=== PATIENT | male | born 1950 | race African-American/Black ===

== ENCOUNTER 2016-06-21 21:15 | Emergency (ER) | payer OTHER ==
[~2016-06-21] VITALS: Ht 175.3 cm; Wt 90.7 kg
[~2016-06-21 21:15] MED LIST: BENICAR 5 MG5 M1 PO; BENICAR20 MG PO; CIPRO250 M1 PO; COLACE100 MG PO; FLOMAX0.4 MG PO; FLOXIN OTI0.3 %/5 M1 OT; HYDROCODON-ACE1 EAC8 PO; HYDROCODONE-HOMA5 ML PO; LANTUS100 UNIT/M SUBQ; LIPITOR 20 MG T20 M1 PO; MIRALAX17 GM PO; MOBIC15 MG PO; NEURONTIN 300300 M1 PO; NEURONTIN600 MG PO; NOVOLOG100 UNIT/1; NOVOLOG100 UNIT/1 SQ; PEPCID20 MG PO; PREDNISONE 20 M20 MG PO; REFRESH TEARS15 ML OP; TESSALON PERLE100 M1 PO; TYLENOL325 MG PO; VALSARTAN320 MG PO; ZOFRAN ODT4 MG PO
[2016-06-21] MEDS ORDERED: BACITRACIN3.5 GM OP (21:37)
== END 2016-06-21 22:09 | disposition home or self-care (01) ==
LOC: ER 21:15
DX: S99.922A Unspecified injury of left foot, initial encounter (principal); E11.9 Type 2 diabetes mellitus without complications; I10 Essential (primary) hypertension; E78.00 Pure hypercholesterolemia, unspecified; Z90.89 Acquired absence of other organs; L93.0 Discoid lupus erythematosus; W45.8XXA Other foreign body or object entering through skin, initial encounter; Y93.89 Activity, other specified; Y92.89 Other specified places as the place of occurrence of the external cause; Y99.9 Unspecified external cause status

== ENCOUNTER → 2016-12-27 | Outpatient (CLI) | payer OTHER ==
[~2016-12-27] VITALS: Ht 175.3 cm; Wt 99.8 kg
[~2016-12-27] MED LIST changes: +ASPIR 8181 MG PO; +BACITRACIN3.5 GM; +BACITRACIN3.5 GM OP; +DIOVAN320 MG PO; +GABAPENTIN600 M1 PO; +KLOR-CON 1010 MEQ PO; +LASIX 20 MG TAB20 MG PO; +LASIX 40 MG TAB40 M2 PO; -NOVOLOG100 UNIT/1; +NOVOLOG100 UNIT/1 SUBQ; +VERAPAMIL E.R240 M1 PO; +ZANTAC 150MG T150 MG PO
--- NOTE | ~2016-12-27 | P ---
[facility] [place] [address] [address] PROCEDURE REPORT Name: GIBSON HUNG Room #: REG [facility] Hernandez#: [id number] Admission: 12/27/16 Attend Phys: Americo Feng Discharge: Date of : 52 Report #: [id number] THIS REPORT FOR: //name// CC: Americo Farris DATE OF SERVICE: 12/27/2016 PROCEDURE PERFORMED: Upper endoscopy with biopsies. HISTORY OF PRESENT ILLNESS: The patient is a 66-year-old male with complaints of hematochezia, lightheadedness, was seen in the Emergency Room on 12/07/2016. He reported bright red blood per rectum, denied any abdominal pain but did have some diarrhea. The patient takes meloxicam as well as aspirin. He apparently was given antibiotics and released. He denies any further bleeding. No family history of colon cancer. Plan is for EGD and colonoscopy today. DESCRIPTION OF PROCEDURE: The risks and benefits of the procedure were explained to the patient, those risks including but not limited to bleeding, perforation, the risk of sedation. He understood these risks and gave informed consent. Sedation was given using propofol per anesthesia. Next, using a standard ZEturfn upper endoscope, the scope was placed in the patient's mouth and advanced under direct vision through the esophagus, stomach and into the second portion of the duodenum. The upper and mid esophagus was normal in appearance. In the distal esophagus, possible short segment of Camejo's was noted. Biopsies were obtained. No evidence of esophagitis. Overall, the gastric mucosa showed a gmhe-vf-ixcmcepx gastritis. There was no bleeding, no ulcerations or erosions. Biopsies were obtained to rule out H. pylori. The pylorus was normal and patent. The duodenal bulb, first and second portion were all normal. The scope was then withdrawn and the procedure terminated. The patient tolerated the procedure well. IMPRESSION: 1. Gastritis, no evidence of bleeding. 2. 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 3. Otherwise normal upper endoscopy. RECOMMENDATIONS: 1. Await biopsy results. 2. We will proceed with colonoscopy next today. [facility] [address] [place] [address] PROCEDURE REPORT Name: GIBSON HUNG Room #: REG [facility] Hernandez#: [id number] Admission: 12/27/16 Attend Phys: Americo Feng Discharge: Date of : 51 Report #: [id number] Thank you for allowing me to participate in his care. By: 1003 1023 Americo Sarabia MD /nt
--- NOTE | ~2016-12-27 | S ---
[facility] [place] [address] SURGICAL PATH RPT PROCEDURE Name: GIBSON HUNG Room #: REG TREY Thacker.#: [id number] Admission: 12/27/16 Date of : 52 Discharge: Report #: [id number] Path Case #: [id number] PATHOLOGY REPORT COLLECTION DATE: 12/27/2016 RECEIVED DATE: 12/27/2016 SUBMITTING PHYS: Dr. Americo Sarabia OTHER PHYS: Dr. Sylvia Farris SPECIMEN(S) RECEIVED: A.Gastric B.Distal esophagus * * * * * * * * * * * * FINAL DIAGNOSIS: A. "Gastric", biopsy: - Gastric mucosa with rosh-ge-nzjhtbeo chronic active gastritis, mild activity. - Negative H. pylori immunohistochemical stain (block A1); control reacted appropriately (see comment). B. "Distal esophagus", biopsy: - Esophageal squamous mucosa and gastric cardia-type mucosa with reactive changes and chronic inflammation; no intestinal metaplasia or dysplasia seen. COMMENT: Within specimen A, the pattern of inflammation is histologically suggestive of an H. pylori infection; however, organisms are not identified on the immunohistochemical stain. Correlation with clinical history and additional laboratory data to potentially identify H. pylori organisms is recommended. (KRISTIW:gretta; 12/28/2016) PATHOLOGIST: Ramonita Chester M.D. REPORT ELECTRONICALLY SIGNED BY: Ramonita Chester M.D. DATE/TIME: 12/28/2016 21:54 * * * * * * * * * * * * GROSS PATHOLOGY: A. Received in formalin labeled "Gibson Hung, BX to Rx gastritis," and additionally labeled on the requisition as "r/o," are 2 segments of carias soft tissue measuring 1.5 x 1.3 x 0.3 cm in aggregate dimensions and ranging from 0.3 to 0.4 cm in maximum dimension. The specimen is submitted entirely in cassette A1. B. Received in formalin labeled "Gibson Hung, distal esophagus r/o Camejo's," are 2 segments of carias soft tissue measuring 0.8 x 0.[address] [place] [address] SURGICAL PATH RPT PROCEDURE Name: GIBSON HUNG [facility] [id number] Admission: 12/27/16 Date of : 52 Discharge: Report #: [id number] Path Case #: [id number] x 0.3 cm in aggregate dimensions and ranging from 0.3 to 0.4 cm in maximum dimension. The specimen is submitted entirely in cassette B1. (TSD; 12/27/2016) CLINICAL HISTORY: Pre-OP DX: Rectal bleeding Post-OP DX: Gastritis INITIAL CPT CODE(S): A; 60939, 15921 B; 60318 Professional services performed by [facility] at [facility] [address], [place] [address] Technical services performed by [facility] at [address] [place] [address]., [address], [place] [address]. [facility] [address] [place] [address] PHONE: [phone] DIRECTOR: Diony Mccord M.D. * * * END OF REPORT * * *
--- NOTE | ~2016-12-27 | P ---
[facility] [place] [address] PROCEDURE REPORT Name: GIBSON HUNG Room #: REG [facility] Hernandez#: [id number] Admission: 12/27/16 Attend Phys: Americo Feng Discharge: Date of : 52 Report #: [id number] THIS REPORT FOR: //name// CC: Americo Farris DATE OF SERVICE: 12/27/2016 PROCEDURE PERFORMED: Colonoscopy. HISTORY OF PRESENT ILLNESS: The patient is a 66-year-old male who began having bloody diarrhea on 12/07/2016, was evaluated in the Emergency Room and discharged with antibiotics. He denies any further bleeding. He denied any abdominal pain. There is no family history of colon cancer. No imaging was performed at that time. DESCRIPTION OF PROCEDURE: The risks and benefits of the procedure were explained to the patient, those risks including but not limited to bleeding, perforation, the risk of sedation. He understood these risks and gave informed consent. Sedation was given using propofol per anesthesia. Next, a digital rectal exam was initially performed, which was normal. Next, using a standard Primadeskn colonoscope, the scope was placed in the patient's anus and advanced under direct vision to the cecum. The overall prep was good in most areas. There were some small areas of solid stool, washings and aspirations were performed. Stool was in the cecum, so I was not able to evaluate most of the cecum. The ileocecal valve was normal. The ascending, transverse, descending and sigmoid colon were all normal in areas that were visualized. There was no evidence of inflammation. No diverticulosis was noted, no colitis. The rectal mucosa was normal. On retroflexion, small nonbleeding internal hemorrhoids were noted, otherwise normal colonoscopy. The scope was then withdrawn and the procedure terminated. The patient tolerated the procedure well. IMPRESSION: 1. Small internal hemorrhoids. 2. Otherwise, normal colonoscopy. RECOMMENDATIONS: No stigmata of bleeding on EGD or colonoscopy today. The patient has a mild gastritis, however, there are no signs of bleeding. We will await biopsy results. Suspect the patient may have had infections colitis as he was treated with antibiotics and his symptoms have now resolved. Would observe at this point. [address] [address] PROCEDURE REPORT Name: GIBSON HUNG Room #: REG TREY Ng#: [id number] Admission: 12/27/16 Attend Phys: Americo Feng Discharge: Date of : 52 Report #: [id number] Thank you for allowing me to participate in his care. By: 1006 1031 Americo Sarabia MD /agustín
== END | disposition home or self-care (01) ==
LOC: GI 07:03
DX: R19.7 Diarrhea, unspecified (principal); K64.8 Other hemorrhoids; K29.70 Gastritis, unspecified, without bleeding; Z90.49 Acquired absence of other specified parts of digestive tract; E11.9 Type 2 diabetes mellitus without complications; I10 Essential (primary) hypertension; E78.00 Pure hypercholesterolemia, unspecified; Z98.890 Other specified postprocedural states
CPT/HCPCS: 62110; 62900

== ENCOUNTER 2017-07-31 00:17 | Emergency (ER) | payer OTHER ==
[~2017-07-31] VITALS: Ht 175.3 cm; Wt 106.1 kg
--- NOTE | ~2017-07-31 | EKG ---
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 : 1950 Requested By: Dawood Antonio Order Number: [id number] MD: Charan Rubin Measurements Intervals [place] Rate: 78 P: 55 NE: 182 QRS: -30 QRSD: 90 T: 53 QT: 398 QTc: 454 Interpretive Statements Sinus rhythm Left axis deviation Nonspecific T wave abnormality Compared to ECG 05/02/2005 18:46:30 Nonspecific change in the T wave abnormality Electronically Signed On 07-31-2017 7:39:07 CDT by Charan Rubin [email or web address] <ELECTRONICALLY SIGNED> By: Charan Rubin MD, [facility] 07/31/17 0739 0029 0029 Charan Rubin MD, [facility] /EPI
[2017-07-31] MEDS ORDERED: JANUVIA100 MG PO (00:32)
[2017-07-31] MEDS ORDERED: STOOL SOFTENER100 MG PO (00:32)
[2017-07-31] MEDS ORDERED: TRAMADOL 50 MG50 MG PO (00:33)
[2017-07-31] MEDS ORDERED: FLEXERIL PO (00:33)
[2017-07-31] MEDS ORDERED: CARVEDILOL25 MG PO (00:34)
[2017-07-31] MEDS ORDERED: VOLTAREN GEL 1100 G1 TOP (00:35)
[2017-07-31] MEDS ORDERED: ALDACTONE25 MG PO (00:36)
[2017-07-31 01:31] LABS: ABSOLUTE NEUTROPHILS 4.4 thou/uL (1.4-8.2); EOSINOPHILS 3.2 % (0.0-3.0); HEMATOCRIT 34.6 % (42.0-52.0); HEMOGLOBIN 11.5 gm/dL (14.0-18.0); LYMPHOCYTES 22.9 % (24.0-44.0); MCH 26.3 pg (26.0-34.0); MCHC 33.2 g/dL (28.0-37.0); MCV 79.2 fL (80.0-100.0); MONOCYTES 8.5 % (1.0-8.0); PLATELET COUNT 240 thou/uL (150-400); POLYS 64.4 % (36.0-66.0); RBC 4.37 mil/uL (4.50-6.00); RDW 17.1 % (10.5-14.5); WBC 6.9 thou/uL (4.0-11.0)
[2017-07-31 01:40] LABS: ANION GAP 12 mmol/L (7-16); BUN 21 mg/dL (7-18); CHLORIDE 103 mmol/L (98-107); CO2 23 mmol/L (21-32); CREATININE 1.9 mg/dL (0.7-1.3); GLUCOSE 312 mg/dL (74-106); POTASSIUM 4.4 mmol/L (3.5-5.1); SODIUM 138 mmol/L (136-145)
[2017-07-31 01:48] LABS: TROPONIN-I < 0.04 ng/mL (<0.06)
== END 2017-07-31 02:58 | disposition home or self-care (01) ==
LOC: ER 00:17
PROVIDERS: Emergency Medicine
DX: R60.0 Localized edema (principal); I10 Essential (primary) hypertension; E11.9 Type 2 diabetes mellitus without complications; M54.9 Dorsalgia, unspecified; G89.29 Other chronic pain; Z90.89 Acquired absence of other organs

== ENCOUNTER 2018-09-23 12:50 | Emergency (ER) | payer OTHER ==
[~2018-09-23] VITALS: Ht 172.7 cm; Wt 108.1 kg
[~2018-09-23 12:50] MED LIST changes: +ALDACTONE25 MG PO; +ALLOPURINOL 10100 M1 PO; +BENICAR40 MG PO; +CARVEDILOL25 MG PO; +DEMADEX20 MG PO; +FLEXERIL PO; +IRBESARTAN300 MG PO; +JANUVIA100 MG PO; +NORVASC10 MG PO; +NORVASC5 MG PO; +POTASSIUM20 PO; +STOOL SOFTENER100 MG PO; +TRAMADOL 50 MG50 MG PO; +VOLTAREN GEL 1100 G1 TOP
[2018-09-23 14:43] LABS: ABSOLUTE NEUTROPHILS 5.3 thou/uL (1.4-8.2); BASOPHILS 1.2 % (0.0-2.0); EOSINOPHILS 3.5 % (0.0-3.0); HEMATOCRIT 34.9 % (42.0-52.0); HEMOGLOBIN 11.4 gm/dL (14.0-18.0); LYMPHOCYTES 17.1 % (24.0-44.0); MCH 27.3 pg (26.0-34.0); MCHC 32.7 g/dL (28.0-37.0); MCV 83.3 fL (80.0-100.0); MONOCYTES 8.8 % (1.0-8.0); PLATELET COUNT 208 thou/uL (150-400); POLYS 69.4 % (36.0-66.0); RBC 4.18 mil/uL (4.50-6.00); RDW 15.1 % (10.5-14.5); WBC 7.7 thou/uL (4.0-11.0)
[2018-09-23 14:51] LABS: CALCIUM 8.9 mg/dL (8.5-10.1); POTASSIUM 5.1 mmol/L (3.5-5.1)
[2018-09-23 14:57] LABS: ALBUMIN 3.8 g/dL (3.4-5.0); DIRECT BILIRUBIN 0.1 mg/dL (<0.1-0.3); TOTAL BILIRUBIN 0.6 mg/dL (<0.1-1.0); TOTAL PROTEIN 8.4 g/dL (6.4-8.2)
[2018-09-23 16:40] VITALS: BP 141/80
== END 2018-09-23 16:40 | disposition home or self-care (01) ==
LOC: ER 12:50
PROVIDERS: Emergency Medicine
DX: R60.0 Localized edema (principal); E11.9 Type 2 diabetes mellitus without complications; I10 Essential (primary) hypertension; M32.9 Systemic lupus erythematosus, unspecified; Z79.4 Long term (current) use of insulin; Z90.49 Acquired absence of other specified parts of digestive tract

== ENCOUNTER → 2019-04-23 | Outpatient (CLI) | payer OTHER ==
[~2019-04-23] VITALS: Ht 175.3 cm; Wt 95.3 kg
[~2019-04-23] MED LIST changes: +AMITRIPTYLINE H10 M1 PO; +ARICEPT10 M1 PO; +LIPITOR10 MG PO; +LYRICA 50 MG50 MG PO; +TORSEMIDE20 MG PO
--- NOTE | ~2019-04-23 | HPC ---
[facility] [address] [address] PAIN MANAGEMENT CONSULTATION Name: GIBSON HUNG Room #: REG TREY OlmedoEdieDarion.#: [id number] Admission: 04/23/19 Attend Phys: Didi Whitman MD Discharge: Date of : 52 Report #: [id number] THIS REPORT FOR: cc: Sylvia Farris MD,Sylvia Whitman,Didi Mcdonald MD ~ CC: Sylvia Whitman DATE OF SERVICE: 04/23/2019 CHIEF COMPLAINT: Pain in the center low back with pain down in the right hip and into both legs and thighs down to the ankles. HISTORY: The patient is a 69-year-old gentleman who has been referred to the pain clinic because of pain and discomfort, which he has been experiencing. He states that he had back surgery in 02/2018. After the surgery, he underwent physical therapy. He underwent therapy for a couple of months. He states that he was using a walker. Has had pain similar to that which he experienced prior to the surgery. He has been having pain radiating down into his buttocks down into his legs. About a week ago, he noticed increased pain and pressure radiating down to the posterior portion of his left leg and hip. He has used hydrocodone when the pain was extremely bad. He did fall. States that he called fire department and was taken to [facility]. States that he underwent rehab for over a month. Notes that his pain is worse with prolonged standing. Pain improves when he is lying down. He describes his pain overall as constant, burning, shooting, aching, cramping, crushing, pulling, gnawing, throbbing, sharp, and stabbing. He rates it as 6/10 today. Can rise to the level of 10. Oftentimes, it averages 7-8. ALLERGIES: ATIVAN. CURRENT MEDICATIONS: Carvedilol 25 mg, Lipitor 10 mg 2 tablets, amlodipine 2.5 mg, Levemir 100 units subQ as directed, allopurinol 100 mg daily, Colace 100 mg, diclofenac 50 mg b.i.d., ____, Flomax 0.4 mg, iron 325 mg, diclofenac gel to affected area 4 times daily, losartan 100 mg, doxazosin 4 mg, bethanechol 25 mg b.i.d., loperamide 2 mg, methocarbamol 750 mg, glucose ____ p.r.n., NovoLog 100 units pen injector, [place] 5/325, gabapentin 600 mg 1 tablet t.i.d., and torsemide 10 mg. PAST MEDICAL HISTORY: Hypertension, type 2 diabetes, hypercholesterolemia, peripheral vascular disease, and benign prostatic hypertrophy. PAST SURGICAL HISTORY: Back surgery in 2000, skin graft from lupus in 2011, hernia repair in 1973, appendectomy in 4, testicular surgery, lumbar laminectomy L4-L5 and L5-S1 with removal of the epidural lipomatosis in 02/2018, [address] [address] PAIN MANAGEMENT CONSULTATION Name: GIBSON HUNG Darion Room #: KEMI Ng#: [id number] Admission: 04/23/19 Attend Phys: Didi Whitman MD Discharge: Date of : 52 Report #: [id number] and mass removal in right leg in 2015. SOCIAL HISTORY: He is retired and has stopped working in 2015. REVIEW OF SYSTEMS: Generally good health, fatigue, weakness, eye disease, blurred vision, glaucoma/cataracts, hearing loss, frequent urination, numbness and tingling, tremors, memory loss/confusion, diabetes, heat intolerance. PAIN CLINIC ASSESSMENT AND PQRS: 1. History of osteoarthritis. The patient has some arthritic changes in his back. He is not being treated for rheumatoid arthritis. 2. Height 5 feet 9 inches, weight 210 pounds, BMI is 31.0. 3. Vital signs: Blood pressure 153/73, pulse 67, respiratory rate 16, room air saturation 96%. 4. Pain intensity 6-7/10. 5. Fall risk. The patient fell. Needed some assistance in getting up. 6. Blood thinner. The patient is not on a blood thinning medication. 7. Hypertension. The patient is being treated for hypertension. 8. Opioids greater than 6 weeks. The patient is not on an opioid medication on a regular basis. 9. Risk assessment tool, low for opioid use. 10. Functional assessment tool 43/70. 11. Recreational drug use. The patient denies use of recreational drugs. Did use cocaine 5-6 years ago. 12. Tobacco: The patient has never smoked. 13. Alcohol: The patient drinks alcoholic beverages on occasion. PHYSICAL EXAMINATION: GENERAL: The patient is a well-developed, well-nourished black male, appears his stated age. He is alert and oriented x 3. His affect is appropriate. Speech is fluent. HEENT: Normocephalic, atraumatic. Extraocular eye muscles intact. Sclerae nonicteric. Mucous membranes are moist. NECK: Without adenopathy or JVD. MUSCULOSKELETAL: Upper extremity muscle strength judged to be 5-/5 for the major muscle groups in the upper extremity. The patient without significant scoliosis, kyphosis, or lordosis. He has a well-healed scar in the lower portion of his back. Some decreased ability to bend forward. Left and right lateral bending, left and right lateral rotation were not very problematic. The patient does have some pain and discomfort, which is radiating down the posterior portion of his legs in the L5-S1 dermatomal distribution on the left and the right. Also, has some numbness and tingling down into his feet. Has some pain in his great toe. IMPRESSION: 1. Lumbar radiculopathy with L5-S1 dermatomal distribution with pain radiating [facility] [address] [place] [address] PAIN MANAGEMENT CONSULTATION Name: GIBSON HUNG Room #: REG [facility] Kirstie.#: [id number] Admission: 04/23/19 Attend Phys: Didi Whitman MD Discharge: Date of : 52 Report #: [id number] down the left as well as the right posterior thigh, calf, and involving with numbness and tingling down in the feet. 2. Hypertension. 3. Diabetes. 4. Kidney disease. 5. Joint disease/arthritis. 6. Gout involving the great toe. 7. Benign prostatic hypertrophy. RECOMMENDATIONS: We discussed treatment options with the patient. The patient is having pain and discomfort radiating down into his low back area, left and right in the L4-L5 dermatomal distribution. We discussed the possibility of an epidural steroid injection. The patient states that he has had some epidural steroid injections in the past at a pain clinic ____ [place]. We would recommend that the patient retrieve these records, so we can evaluate what procedure was done in the past. We will have the patient try amitriptyline 10 mg at bedtime. This can be helpful with sleep as well as with pain. The patient will also try Lyrica. A script for Lyrica 50 mg 1 p.o. t.i.d. has been provided. After the patient returned to the pain clinic, we will consider whether or not an injection will be beneficial. We would like to thank you for letting us participate in his care. We hope he continues to improve. By: 0005 0130 Didi Whitman MD /agustín
[2019-04-23 09:28] VITALS: BP 153/73
--- NOTE | 2019-04-23 09:43 | NUR ---
Pain Clinic Assessment: 1. History of Osteoarthritis: NOT SURE History of Rheumatoid Arthritis: 2. Height: 5 ft. 9 in. 175.3 cm. Weight: 210.0 lb. oz. 95.256 kg. Patient's BMI: 31.0 3. Vital Signs: BP: 153/73 Pulse: 67 Resp: 16 Temp: 02 Sat: 96 ECG Mon: 4. Pain Intensity: 6-8 5. Fall Risk: Dizziness: N Needs help standing or walking: Y Fallen in the last 3 months: Y Fall risk comments: 6. Patient on Blood Thinner: None 7. History of Hypertension: Y 8. Opioid Therapy greater than 6 weeks: N Opiate Contract Signed: 9. Risk Assessment Tool Provided: 2-LOW RISK 10. Functional Assessment Tool: 43 11. Recreational Drug Use: Past greater than 3 mos Drug Type: COCAINE Tobacco Use: Never Smoker Tobacco Type: Amount or Packs/day: How Many Years: Alcohol Use: Yes Frequency: Special Occasions Quant:
== END ==
LOC: PAIN 04-02 10:47
DX: M54.16 Radiculopathy, lumbar region (principal); M25.551 Pain in right hip; I10 Essential (primary) hypertension; E11.9 Type 2 diabetes mellitus without complications; N28.9 Disorder of kidney and ureter, unspecified; M19.90 Unspecified osteoarthritis, unspecified site; M10.9 Gout, unspecified; N40.0 Benign prostatic hyperplasia without lower urinary tract symptoms

== ENCOUNTER 2019-08-24 16:29 | Inpatient (IN) | payer OTHER ==
[~2019-08-24] VITALS: Ht 175.3 cm; Wt 95.4 kg
[2019-08-24 16:30] VITALS: BP 180/70
[2019-08-24 16:56] LABS: URINE BILIRUBIN NEGATIVE (Negative); URINE BLOOD 3+ (Negative); URINE CLARITY CLEAR; URINE COLOR YELLOW; URINE GLUCOSE-RANDOM* 1+ (Negative); URINE KETONES 1+ (Negative); URINE LEUKOCYTES-REFLEX NEGATIVE (Negative); URINE NITRITE-REFLEX NEGATIVE (Negative); URINE PROTEIN (DIPSTICK) 3+ (Negative); URINE SPECIFIC GRAVITY 1.025 (1.005-1.035); URINE UROBILINOGEN 0.2 E.U./dl (0.2-1.0)
[2019-08-24 17:02] LABS: HYALINE CASTS 0-3 Few /LPF (None Seen); SQUAMOUS 0-3 Few /LPF (0-3)
[2019-08-24 17:03] LABS: AMORPHOUS URATES Few /LPF (None Seen); BACTERIA-REFLEX None Seen /HPF (None Seen); TRANSITIONAL EPITHEL CELL 0-3 Few /LPF (None Seen); URINE RBC 3-10 Few /HPF (0-2); URINE WBC-REFLEX 0-5 Rare /HPF (0-5)
[2019-08-24 17:13] LABS: BE(vivo) -4.6 mmol/L (-2 to +3); HCO3 17.5 mmol/L (22.0-26.0); PCO2 24.1 mmHg (35.0-45.0); PO2 63.7 mmHg (80.0-100.0); sO2 94.2 % (92.0-98.0)
[2019-08-24] MEDS ORDERED: LIPITOR 20 MG T20 M1 PO (17:13)
[2019-08-24] MEDS ORDERED: FLOMAX0.4 MG PO (17:14)
[2019-08-24] MEDS ORDERED: LEVEMIR100 UNIT/1 SUBQ (17:16)
[2019-08-24] MEDS ORDERED: ARICEPT10 M1 PO (17:17)
[2019-08-24 17:19] LABS: ABSOLUTE NEUTROPHILS 17.9 thou/uL (1.4-8.2); BASOPHILS 0.1 % (0.0-2.0); HEMATOCRIT 30.8 % (42.0-52.0); HEMOGLOBIN 10.1 gm/dL (14.0-18.0); LYMPHOCYTES 2.4 % (24.0-44.0); MCH 24.5 pg (26.0-34.0); MCHC 32.6 g/dL (28.0-37.0); MCV 75.2 fL (80.0-100.0); MONOCYTES 5.5 % (1.0-8.0); PLATELET COUNT 246 thou/uL (150-400); RDW 16.8 % (10.5-14.5); WBC 19.5 thou/uL (4.0-11.0)
[2019-08-24 17:29] LABS: ANION GAP 14 mmol/L (7-16); BUN 34 mg/dL (7-18); CHLORIDE 101 mmol/L (98-107); CO2 23 mmol/L (21-32); CREATININE 3.3 mg/dL (0.7-1.3); GLUCOSE 275 mg/dL (74-106); SODIUM 138 mmol/L (136-145)
--- NOTE | 2019-08-24 17:31 | NUR ---
This RN speaks with daughter, Kristi, on phone. Kristi reports that patient was found at home with two empty bottles of wine next to him. Patient's sister noticed patient had vomited and there was some blood in patient's vomit.
[2019-08-24 17:34] LABS: ALBUMIN 2.9 g/dL (3.4-5.0); SGOT 25 U/L (15-37); SGPT 21 U/L (30-65); TOTAL PROTEIN 7.9 g/dL (6.4-8.2); TROPONIN-I <0.06 ng/mL (<0.06)
--- NOTE | 2019-08-24 19:40 | NUR ---
Pharmacy contacted for vancomycin. Tech reports med already sent. This RN checks department. Vanco not received by other nurses. Pharmacy called back.
--- NOTE | 2019-08-24 19:51 | NUR ---
Pharmacy reports will send vancomycin
[2019-08-24 20:02] LABS: INR 1.2; PROTIME 12.3 Seconds (9.3-11.4)
[2019-08-24 20:07] LABS: FIBRINOGEN 767.1 mg/dL (210-360)
--- NOTE | 2019-08-24 20:59 | NUR ---
Rachael contacted for antipyretic medication
[2019-08-24 21:36] VITALS: BP 166/79
[2019-08-24 22:05] VITALS: BP 175/87
[2019-08-25] VITALS (139 sets, daily range): BP systolic 115–193; BP diastolic 54–104
[2019-08-25 00:19] LABS: BE(vivo) -3.8 mmol/L (-2 to +3); HCO3 19.6 mmol/L (22.0-26.0); PCO2 30.1 mmHg (35.0-45.0); pH 7.432 (7.360-7.450); sO2 97.9 % (92.0-98.0)
--- NOTE | 2019-08-25 02:08 | NUR ---
ASSUMED CARE OF PATIENT AT 2215 08/24/19 FROM ED, PATIENT WAS ON 3L O2 INITIALLY AND WAS NOT ABLE TO KEEP O2 ABOVE 88%, PATIENT WAS QUICKLY INCREASED TO 10 L WITH MINIMAL IMPROVEMENT. PULMONARY CONSULT ADDED AND CALLED INTERNATIONAL COORDINATOR. ID CONSULT CALLED AND SPOKE WITH DR. Jamin PRADO. PATIENT RESPIRATIONS GREATER THAN 30. PATIENT'S TEMPERATURE 38.4. TYLENOL GIVEN IN ED. ICE PACKS PLACED IN AXILLARY AND GROIN AREA, LIGHT SHEET COVERING PATIENT. PATIENT SHIVERING. PATIENT TO CONTINUE WITH POC.
[2019-08-25 06:18] LABS: ABSOLUTE NEUTROPHILS 15.9 thou/uL (1.4-8.2); BASOPHILS 0.2 % (0.0-2.0); HEMOGLOBIN 8.8 gm/dL (14.0-18.0); LYMPHOCYTES 2.5 % (24.0-44.0); MCH 24.4 pg (26.0-34.0); MCHC 32.7 g/dL (28.0-37.0); MCV 74.6 fL (80.0-100.0); PLATELET COUNT 208 thou/uL (150-400); POLYS 93.3 % (36.0-66.0); RBC 3.62 mil/uL (4.50-6.00); RDW 16.7 % (10.5-14.5)
[2019-08-25 06:35] LABS: ALBUMIN 2.3 g/dL (3.4-5.0); CALCIUM 7.4 mg/dL (8.5-10.1); CREATININE 3.2 mg/dL (0.7-1.3); MAGNESIUM 1.7 mg/dL (1.8-2.4); POTASSIUM 3.8 mmol/L (3.5-5.1); TOTAL BILIRUBIN 0.9 mg/dL (0.2-1.0); TOTAL PROTEIN 5.7 g/dL (6.4-8.2)
--- NOTE | 2019-08-25 06:42 | NUR ---
ASSUMED CARE OF PATIENT FROM ED AT 2215. ASSESSMENT COMPLETED. FEBRILE MINIMAL RELIEF FROM PO ACET. ICE APPLIED TO THE AXILLARY AND GROIN. PATIENT PLACED ON BIPAP AND REMAINED FOR THE ENTIRETY OF THE NIGHT.
--- NOTE | 2019-08-25 09:03 | EKG ---
[facility] [place] [address] [place] [address] ELECTROCARDIOGRAM REPORT Name: GIBSON HUNG Room #: 236-P ADM IN M.R.#: [id number] Admission: 08/24/19 Attend Phys: Vinicio Velasco MD Discharge: Date of : 52 Report #: [id number] THIS REPORT FOR: cc: Sylvia Farris MD, Karla L. 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: EVONNE : 1950 Requested By: Shanell Malloy Order Number: [id number] MD: Charan Rubin Measurements Intervals [place] Rate: 108 P: 67 [place]: 204 QRS: -2 QRSD: 96 T: 106 QT: 328 QTc: 440 Interpretive Statements Sinus tachycardia Poor R wave progression Nonspecific ST and T wave abnormality Compared to ECG 11/07/2017 19:35:00 No significant change was found Electronically Signed On 08-25-2019 9:01:03 CDT by Charan Rubin [email or web address] <ELECTRONICALLY SIGNED> By: Charan Rubin MD, [facility] 08/25/19 0901 1635 1635 Charan Rubin MD, [facility] /EPI
--- NOTE | 2019-08-25 10:29 | NUR ---
chart review, unable to visit with pt at this time on bipap.
[2019-08-25 13:36] LABS: BE(vivo) -5.7 mmol/L (-2 to +3); HCO3 18.3 mmol/L (22.0-26.0); PCO2 30.9 mmHg (35.0-45.0); PO2 137.3 mmHg (80.0-100.0); pH 7.391 (7.360-7.450); sO2 98.8 % (92.0-98.0)
--- NOTE | 2019-08-25 18:12 | NUR ---
1750- PATIENT WAS ABLE TO TALK WITH BOTH OF HIS DAUGHTERS ON THE PHONE. NURSE TALKED WITH CHANDLER WHO EXPRESSED SHE IS OK WITH PATIENT BEING INTUBATED. NURSE OFFERED DR. CANO TO CALL HER AGAIN PRIOR TO INTUBATION FOR FURTHER ANSWERS TO THE RESEARCH ON INTUBATED PATIENTS WITH POTENTIAL COVID, CHANDLER EXPRESSED THERE IS NO NEED AND THAT SHE AGREES WITH INTUBATION.
--- NOTE | 2019-08-25 18:30 | NUR ---
1829- PATIENT INTUBATED BY DR. CANO. 2 RT'S AND 1 RN IN ROOM. PATIENT ATTEMPTING TO GRAB ET TUBE, RESTRAINTS PLACED.
--- NOTE | 2019-08-25 18:45 | NUR ---
OG TUBE PLACED, XRAY TO CONFIRM. CENTRAL LINE PLACED, CONSENT OBTAINED. WAITING XRAY FOR PLACEMENT. NURSE TO CONTINUE TO MONITOR PATIENT STATUS.
--- NOTE | 2019-08-25 18:46 | NUR ---
VAT CONSULTED FOR A CL FOR THIS PT WHO IS PUI, RESP ISSUES. PER HOSPITAL P&P A [id number] PLACED WITH THE TIP IN THE [facility]. LINE PULLED BACK 3CM AND PT WOLF WELL.
[2019-08-25 20:37] LABS: BE(vivo) -6.6 mmol/L (-2 to +3); HCO3 17.4 mmol/L (22.0-26.0); PCO2 29.6 mmHg (35.0-45.0); PO2 178.4 mmHg (80.0-100.0); pH 7.388 (7.360-7.450); sO2 99.2 % (92.0-98.0)
[2019-08-26] VITALS (77 sets, daily range): BP systolic 76–203; BP diastolic 42–85
--- NOTE | 2019-08-26 06:00 | NUR ---
REMAINS INTUBATED AND SEDATED WITH PROPOFOL FOR VENT MANAGEMENT. VSS HAD A LARGE BROWN LIQUID STOOL EARLIER. COMPLETE BED BATH AND LINEN CHANGE DONE. WILL CONT TO MONITOR CLOSELY.
[2019-08-26 06:01] LABS: BE(vivo) -6.3 mmol/L (-2 to +3); PCO2 32.2 mmHg (35.0-45.0); PO2 90.1 mmHg (80.0-100.0); pH 7.365 (7.360-7.450); sO2 96.7 % (92.0-98.0)
--- NOTE | 2019-08-26 07:30 | NUR ---
SEDATION VACATION FROM [id number], PROPOFOL WAS ON HOLD. HE FOLLOWED COMMANDS, NODDED APPROPRIATELY. HR 87 RR 16 CALM SBP 130S INTUBATED LAST NIGHT, NO CPAP TRIAL TODAY.
[2019-08-26 07:42] LABS: ALBUMIN 2.2 g/dL (3.4-5.0); CALCIUM 7.5 mg/dL (8.5-10.1); CREATININE 3.8 mg/dL (0.7-1.3); POTASSIUM 4.2 mmol/L (3.5-5.1); TOTAL BILIRUBIN 0.7 mg/dL (0.2-1.0)
--- NOTE | 2019-08-26 14:59 | 2DMMODE ---
[facility] [place] [address] 2 D/M-MODE ECHOCARDIOGRAM Name: GIBSON HUNG Room #: 236-P ADM IN M.R.#: [id number] Admission: 08/24/19 Attend Phys: Vinicio Velasco MD Discharge: Date of : 52 Report #: [id number] THIS REPORT FOR: cc: Sylvia Farris MD, Karla L. MD Lundgren, Craig H. MD [facility] ~ APPROVED REPORT Study performed: 08/26/2019 13:06:02 EXAM: Comprehensive 2D, Doppler, and color-flow Echocardiogram Patient Location: ICU Room #: 236 Status: routine BSA: 2.07 HR: 55 bpm Rhythm: NSR Other Information Study Quality: Good Indications Respiratory failure. Hx: HTN, HLP, DM, ETOH abuse. 2D Dimensions IVSd: 12.00 (7-11mm) LVOT Diam: 22.33 (18-24mm) LVDd: 51.00 mm PWd: 12.44 (7-11mm) Ascending Ao: 28.70 (22-36mm) LVDs: 36.43 (25-40mm) Aortic Root: 35.91 mm Volumes Left Atrial Volume (Systole) Single Plane 4CH: 56.07 mL Single Plane 2CH: 67.55 mL LA ESV Index: 33.00 mL/m2 Aortic Valve AoV Peak Rashawn.: 1.18 m/s AO Peak Gr.: 5.57 mmHg LVOT Max P.48 mmHg LVOT Max V: 0.79 m/s WILFREDO Vmax: 2.61 cm2 Mitral Valve [facility] [address] [place] [address] 2 D/M-MODE ECHOCARDIOGRAM Name: GIBSON HUNG Room #: 236-P [facility] IN [facility]#: [id number] Admission: 08/24/19 Attend Phys: Vinicio Velasco MD Discharge: Date of : 52 Report #: [id number] E/A Ratio: 1.5 MV Decel. Time: 266.10 ms MV E Max Rashawn.: 0.78 m/s MV A Rashawn.: 0.51 m/s MV PHT: 77.17 ms IVRT: 59.98 ms Pulmonary Valve PV Peak Rashawn.: 0.84 m/s PV Peak Gr.: 2.85 mmHg Pulmonary Vein P Vein S: 0.58 m/s P Vein A: 0.27 m/s P Vein D: 0.49 m/s P Vein A Dur.: 147.6 msec P Vein S/D Ratio: 1.18 Tricuspid Valve TR Peak Rashawn.: 1.88 m/s RAP Estimate: 10.00 mmHg TR Peak Gr.: 14.13 mmHg PA Pressure: 24.00 mmHg Left Ventricle The left ventricle is normal size. There is normal LV segmental wall motion. Mild concentric left ventricular hypertrophy. Left ventricular systolic function is normal. LVEF is 55%. Moderate diastolic dysfunction Right Ventricle The right ventricle is normal size. The right ventricular systolic function is normal. Atria The left atrium size is normal. The right atrium size is normal. Aortic Valve The aortic valve is normal in structure. No aortic regurgitation is present. There is no aortic valvular stenosis. Mitral Valve The mitral valve is normal in structure. Trace to mild mitral regurgitation. Tricuspid Valve The tricuspid valve is normal in structure. Trace tricuspid regurgitation. Estimated PAP is 25mmHg. [facility] [place] [address] 2 D/M-MODE ECHOCARDIOGRAM Name: GIBSON HUNG Darion Room #: 236-P ADM IN M.R.#: [id number] Admission: 08/24/19 Attend Phys: Vinicio Velasco MD Discharge: Date of : 52 Report #: [id number] Pulmonic Valve The pulmonary valve is normal in structure. Trace pulmonic regurgitation. Great Vessels The aortic root is normal in size. The ascending aorta is normal in size. IVC is dilated and collapses <50% with inspiration. Pericardium Small pericardial effusion. <Conclusion> Left ventricular systolic function is normal. There is normal LV segmental wall motion. Mild concentric left ventricular hypertrophy. LVEF is 55%. Moderate diastolic dysfunction The aortic valve is normal in structure. No aortic regurgitation or stenosis The mitral valve is normal in structure. Trace to mild mitral regurgitation. Trace tricuspid regurgitation. Estimated pulmonary artery pressure of 25mmHg. Small pericardial effusion. <ELECTRONICALLY SIGNED> By: Charan Rubin MD, [facility] 08/26/19 1458 [id number] Charan Rubin MD, [facility] /INF
[2019-08-26 17:03] LABS: ABSOLUTE NEUTROPHILS 12.8 thou/uL (1.4-8.2); BASOPHILS 1.2 % (0.0-2.0); EOSINOPHILS 0.9 % (0.0-3.0); HEMATOCRIT 25.1 % (42.0-52.0); HEMOGLOBIN 8.1 gm/dL (14.0-18.0); MCH 24.2 pg (26.0-34.0); MCHC 32.4 g/dL (28.0-37.0); MCV 74.5 fL (80.0-100.0); MONOCYTES 3.2 % (1.0-8.0); PLATELET COUNT 178 thou/uL (150-400); POLYS 89.7 % (36.0-66.0); RBC 3.37 mil/uL (4.50-6.00); RDW 17.3 % (10.5-14.5); WBC 14.2 thou/uL (4.0-11.0)
--- NOTE | 2019-08-26 17:06 | NUR ---
1700- NURSE UPDATED PTS DAUGHTER, CHANDLER HUNG, ON LABS, VITALS, AND OVERALL CURRENT STATUS AND PLAN OF CARE. HER QUESTIONS WERE ANSWERED.
[2019-08-26 17:07] LABS: HIV ANTIBODY Non Reactive (Non Reactive)
[2019-08-26 18:20] LABS: ANISOCYTOSIS 1+; PLATELET ESTIMATE NORMAL
[2019-08-26 18:21] LABS: HYPOCHROMASIA SLIGHT; TARGET CELLS FEW; TEARDROPS FEW; TOXIC GRANULATION SLIGHT
--- NOTE | 2019-08-26 19:30 | NUR ---
PATIENT PROGRESSING TOWARDS PLAN OF CARE EVIDENCED BY DECREASING OXYGEN DEMANDS, AFEBRILE, DECREASED TACHYCARDIA AND HYPERTENSION WITH SEDATION AND IV MEDICATIONS.
[2019-08-27] VITALS (19 sets, daily range): BP systolic 126–151; BP diastolic 62–72
[2019-08-27 05:10] LABS: BE(vivo) -3.9 mmol/L (-2 to +3); HCO3 21.4 mmol/L (22.0-26.0); PCO2 40.2 mmHg (35.0-45.0); PO2 81.2 mmHg (80.0-100.0); pH 7.345 (7.360-7.450); sO2 95.4 % (92.0-98.0)
[2019-08-27 05:17] LABS: HEMATOCRIT 24.8 % (42.0-52.0); HEMOGLOBIN 8.3 gm/dL (14.0-18.0); MCHC 33.2 g/dL (28.0-37.0); MCV 75.3 fL (80.0-100.0); RBC 3.3 mil/uL (4.50-6.00); RDW 17.8 % (10.5-14.5); WBC 13.5 thou/uL (4.0-11.0)
--- NOTE | 2019-08-27 05:30 | NUR ---
ASSUMED CARE AT 1900. SEDATION VACATION DURING FIRST ASSESSMENT, PROPOFOL AND VERSED WERE OFF FOR ABOUT 15 MINUTES BEFORE PT STARTED TO RESPOND TO COMMANDS, AND HE WAS SLUGGISH WITH THESE RESPONSES. TITRATED VERSED DOWN AND LEFT PROPOFOL AT PREVIOUS DOSE 40 MCG. Q2 TURNS AND ORAL CARE, Q2 RELEASE FROM RESTRAINTS. PERKINS DRAINING YELLOW URINE, SENT SAMPLE TO LAB. OG AND ET TUBES IN PLACE. NO TEMPS OVERNIGHT. ONE MEDIUM LIQUID STOOL, DARK BILE GREEN IN COLOR. WAS SB IN MID 50'S PRIOR TO DECREASING VERSED, HR NOW 60-65 AND REGULAR. NO OTHER CONCERNS, WILL CONTINUE TO MONITOR.
[2019-08-27 06:16] LABS: ALBUMIN 1.8 g/dL (3.4-5.0); CALCIUM 7.4 mg/dL (8.5-10.1); CREATININE 3.4 mg/dL (0.7-1.3); PHOSPHORUS 4.6 mg/dL (2.5-4.9); POTASSIUM 3.8 mmol/L (3.5-5.1)
--- NOTE | 2019-08-27 09:18 | HC ---
[facility] [place] [address] CONSULTATION Name: GIBSON HUNG Room #: 236-P ADM IN M.R.#: [id number] Admission: 08/24/19 Attend Phys: Vinicio Velasco MD Discharge: Date of : 52 Report #: [id number] THIS REPORT FOR: cc: Sylvia Farris MD,Sylvia Dos Santos,Lewis Merritt MD ~ CC: Sylvia Velasco DATE OF SERVICE: 08/26/2019 REASON FOR CONSULTATION: Chronic kidney disease. REASON FOR PRESENTATION: Found down with mental status changes. HISTORY OF PRESENT ILLNESS: This is obtained from the medical chart. The patient is intubated and not able to provide me with the history. The patient has a history of chronic alcohol abuse. He was found in his bed passed out with 2 empty bottles of wine. Paramedics were called. The patient was brought to the Emergency Room and was very lethargic. The patient's condition deteriorated. He was found to have bibasilar infiltrate consistent with pneumonia and right-sided pleural effusion. He had required intubation to protect his airways as he was not able to protect his airways by himself. The patient's creatinine on presentation was 3.3. I did look back to the patient's history and it does look like that the patient carries a diagnosis of chronic kidney disease ever since 2018 with his baseline creatinine in the 2.5 range. He continues to make appropriate amount of urine. He has leukocytosis. Vancomycin level was elevated after he was initiated on appropriate pneumonia coverage. As stated above, the patient is currently intubated and not able to provide us with any details. PAST MEDICAL HISTORY: 1. Alcohol abuse. 2. Chronic kidney disease. 3. Back surgery. 4. Right leg surgery. 5. Appendectomy. MEDICATIONS: 1. Allopurinol. 2. Carvedilol. 3. Torsemide. 4. Amlodipine. 5. Insulin. ADDITIONAL MEDICAL HISTORY: Diabetes mellitus. [address] [address] CONSULTATION Name: GIBSON HUNG Darion Room #: 236-P [facility] IN ..#: [id number] Admission: 08/24/19 Attend Phys: Vinicio Velasco MD Discharge: Date of : 52 Report #: [id number] ALLERGIES: None. SOCIAL HISTORY: Unobtainable given the patient's current mental status. REVIEW OF SYSTEMS: Unobtainable given the patient's current mental status. FAMILY HISTORY: Unobtainable given the patient's current mental status. PHYSICAL EXAMINATION: GENERAL: Intubated. VITAL SIGNS: Blood pressure is 129/64. Temperature is 38.8. HEAD AND NECK: ET tube in place. CHEST: Bilateral rhonchi. CARDIOVASCULAR: No rub. ABDOMEN: Distended. EXTREMITIES: Lower extremities, +1 edema. LABORATORY DATA: Laboratory values from today revealed a white blood cell count of 17,000, hemoglobin of 8.8, sodium of 142, potassium of 4.2, BUN of 44, creatinine of 3.8. Vancomycin level is elevated at 22. First COVID-19 PCR is negative. ASSESSMENT, IMPRESSION AND PLAN: 1. Acute kidney injury on top of chronic kidney disease. 2. Respiratory failure. 3. Fever. 4. PUI for COVID-19. 5. Aspiration pneumonitis. 6. Alcoholism. 7. Dementia. 8. The patient does have history of chronic kidney disease based on his previous creatinine value. 9. His vancomycin level is elevated and I will stop that. 10. Initiate acute kidney injury workup. 11. Currently being ruled out for second COVID-19 sample. 12. Continue with the hemodynamic support. 13. Pulmonary is managing his vent issues. 14. Avoid nephrotoxins. 15. Continue to follow daily electrolytes and kidney function. 16. Avoid aggressive blood pressure reduction. [address] [address] CONSULTATION Name: GIBSON HUNG Room #: 236-P ADM IN M.R.#: [id number] Admission: 08/24/19 Attend Phys: Vinicio Velasco MD Discharge: Date of : 52 Report #: [id number] 17. He seems to be making appropriate amount of urine and we will continue to follow and support during his hospital stay. <ELECTRONICALLY SIGNED> By: Lewis Dos Santos MD 08/27/19 0918 0900 0946 Lewis Dos Santos MD /agustín
--- NOTE | 2019-08-27 09:34 | NUR ---
Starting npo status day 3. If unable to extubate, recommend start Vital high protein at 30ml/hr and reach goal of 55ml/hr. Defer any fluid needs to renal
--- NOTE | 2019-08-27 11:04 | NUR ---
RN ASSUMED CARE AT 0700. PATIENT'S SISTER CALLING, RN ASKING HER TO CALL BACK DUE TO IT BEING SHIFT CHANGE. AT 1030, PATIENT'S DAUGHTER CALLED, RN EDUCATED AND UPDATING HER ABOUT POC. AT 0930, DR SHORE ROUNDING. ORDERS TO BEGIN TUBE FEEDS GIVEN.
--- NOTE | 2019-08-27 16:14 | NUR ---
SW reviewed chart and spoke with attending physician. Pt remains intubated. Will need therapy evals when pt is able to participate. YVONNE is following to assist as needed with discharge planning.
--- NOTE | 2019-08-27 22:25 | NUR ---
SPOKE WITH DAUGHTER (VERONICA HUNG) AND GAVE UPDATE ON PATIENTS PLAN.
[2019-08-28] VITALS (42 sets, daily range): BP systolic 85–157; BP diastolic 55–75
--- NOTE | 2019-08-28 04:54 | NUR ---
RECIEVED CARE OF PATIENT AT 1900, PATIENT ON LIGHT SEDATION, REMAINS ON PROPOFOL BUT VERSED WEANED OFF DURING BEGINNING OF SHIFT. PATIENT SQUEEZES EYEBROWS WHEN SEDATION IS PAUSED, DOES NOT FOLLOW COMMANDS. ON VENTLATOR AT 40% FIO2, O2 SAT REMAINED ABOVE 90%. TOLERATING TUBE FEEDING AT 30ML/HR, RESIDUAL CHECK AT 0400 WAS 100ML. PERKINS PATENT WITH GREATER THAN 30CC/HR OUTPUT. NO SIGNIFICANT EVENTS THROUGHOUT THE NIGHT, CHEST X-RAY AND LABWORK COMPLETED. NO SIGN OF ACUTE DISTRESS NOTED AT THIS TIME. WILL CONTINUE TO MONITOR.
[2019-08-28 06:24] LABS: ALBUMIN 1.7 g/dL (3.4-5.0); CALCIUM 7.8 mg/dL (8.5-10.1); PHOSPHORUS 4.1 mg/dL (2.5-4.9); POTASSIUM 3.4 mmol/L (3.5-5.1)
--- NOTE | 2019-08-28 10:30 | NUR ---
SUCTIONED PATIENT. PATIENT COUGHED UP LARGE BLOODY SPUTUM. ORAL CARE PROVIDED. REPOSITIONED PATIENT TO RIGHT SIDE. PATIENT HAD MEDIUM LIQUID GREEN STOOL. PLACED GLIDE SHEET FOR EASE OF REPOSITIONING.
--- NOTE | 2019-08-28 15:27 | NUR ---
SW reviewed chart and spoke with attending physician. Pt remains intubated in ICU. Vent weaning trials continue. SW spoke with pt's dtr, Kristi, via phone to provide update. Pt's dtr states that pt has been to [facility] and [facility]. Pt's dtr states if pt needs post acute care, family would request referral to [facility]. SW explained that therapy evals will be ordered when pt is extubated and able to participate. Pt's dtr verbalized understanding. SW is following to assist as needed with discharge planning.
[2019-08-29] VITALS (47 sets, daily range): BP systolic 144–167; BP diastolic 46–72
[2019-08-29 05:57] LABS: HEMATOCRIT 23.2 % (42.0-52.0); HEMOGLOBIN 7.8 gm/dL (14.0-18.0); MCH 25.4 pg (26.0-34.0); MCHC 33.7 g/dL (28.0-37.0); MCV 75.3 fL (80.0-100.0); RBC 3.08 mil/uL (4.50-6.00); RDW 17.9 % (10.5-14.5); WBC 9.8 thou/uL (4.0-11.0)
[2019-08-29 06:23] LABS: ALBUMIN 1.6 g/dL (3.4-5.0); CALCIUM 7.9 mg/dL (8.5-10.1); CREATININE 2.8 mg/dL (0.7-1.3); PHOSPHORUS 3.9 mg/dL (2.5-4.9); POTASSIUM 3.5 mmol/L (3.5-5.1)
--- NOTE | 2019-08-29 07:26 | NUR ---
PT IS ON PROPOFOL GTT AT 20MCG. SEDATION VACATION AT 9768-1040. PT DOESNT FOLLOW COMMANDS, BUT AWAKENS AND OPENS EYES TO VOICE, POSITIVE COUGH AND GAG AND FACIAL GRIMACE TO PAIN. PT HAD A STABLE UNEVENTFUL NOC. PT RESTED WELL ALL NOC. PROPOFOL GTT TURNED DOWN TO 15MCG. TOTAL U/O OF 850ML. PT'S DTR CHANDLER CALLED AT 2125 STATING THAT SHE DROPPED OFF PT'S PHONE AT THE ER ENTRANCE. RN GOT PT'S PHONE AND PLACED IT ON BEDSIDE TABLE. PT IS STABLE, WILL CONTINUE TO CLOSELY MONITOR.
--- NOTE | 2019-08-29 14:13 | NUR ---
SW reviewed chart and spoke with attending physician. Pt remains intubated and sedated in ICU. Will need therapy evals ordered when extubated and able to participate. No weekend discharge planned. YVONNE is following to assist as needed with discharge planning.
--- NOTE | 2019-08-29 17:47 | NUR ---
ON THE VENT, LIGHTLY SEDATED AND OPENS EYES WHEN NAME IS CALLED AND FOLLOWS SOME SIMPLE COMMANDS AT TIMES, GRIMMACES DURING ORAL CARE. VITALS STABLE. TUBEFEEDING PER OGT, NOT YET AT GOAL DUE TO MODERATE RESIDUALS. FMS PLACED FOR LIQUID STOOLS. DAUGHTER CHANDLER CALLED EARLIER THIS MORNING AND WAS UPDATED BY RN AND QNS ANSWERED. WILL CONTINUE WITH POC.
--- NOTE | 2019-08-29 18:32 | NUR ---
PATIENT'S MOTHER DAHLIA LOPEZ CALLED AND WAS UPDATED BY RN AT THIS TIME, QNS WERE ANSWERED AND PATIENT WAS NOTIFIED OF THIS AND NODDED TO ACKNOWLEDGE.
[2019-08-30] VITALS (25 sets, daily range): BP systolic 143–164; BP diastolic 53–74
[2019-08-30 05:17] LABS: ALBUMIN 1.5 g/dL (3.4-5.0); CALCIUM 8.3 mg/dL (8.5-10.1); CREATININE 2.7 mg/dL (0.7-1.3); PHOSPHORUS 4.2 mg/dL (2.5-4.9); POTASSIUM 3.3 mmol/L (3.5-5.1)
--- NOTE | 2019-08-30 06:29 | NUR ---
Received report from offgoing RN and assumed patient care. Patient remains on the ventilator with Propofol infusing. Patient follows some commands and blinks his eyes for yes. Patient's VS remained stable during this shift and no acute events occurred. Family updated on care plan.
[2019-08-30 08:04] LABS: BE(vivo) -4.6 mmol/L (-2 to +3); HCO3 19.6 mmol/L (22.0-26.0); PCO2 32.7 mmHg (35.0-45.0); PO2 86.3 mmHg (80.0-100.0); pH 7.396 (7.360-7.450); sO2 96.6 % (92.0-98.0)
[2019-08-30 15:08] LABS: ADENOVIRUS Negative (Negative); INFLUENZA A Negative (Negative); INFLUENZA B Negative (Negative); METAPNEUMOVIRUS Negative (Negative); PARAINFLUENZA 1 Negative (Negative); PARAINFLUENZA 2 Negative (Negative); PARAINFLUENZA 3 Negative (Negative); RHINOVIRUS Negative (Negative); RSV A Negative (Negative); RSV B Negative (Negative)
--- NOTE | 2019-08-30 18:15 | NUR ---
PATIENT TOLERATED SEDATION VACATION THIS SHIFT. PATIENT HAND SEWER SHOES HANDS; LOOKS AT NURSE; AND MOVES ALL EXTREMITIES. PATIENT TOLERATED APPROX TWO HOURS ON CIPAP TRIAL THIS MORNING. PATIENT DID NEED TO GO BACK ON ASSIST CONTROL SETTING DUE TO TACHYPNIA AND LOW OXYGEN SATURATION OF 83%. PATIENT SEDATED ON PROPOFOL. PERKINS AND FMS CONTINUED. POTASSIUM REPLACED ONE TIME PER NEPHRO ORDER. REDRAW IN AM. DEXTROSE GTT DISCONTINUED. TOLERATING TF AT 40/HR; RESIDUALS 100-150 CC; DID NOT REACH GOAL OF 55/HR. 400 CC WATER FLUSHES Q6 HR ORDERED. LARGE AMOUNT OF SECRETIONS/SPUTUM. PATIENT HAS STRONG COUGH.
[2019-08-31] VITALS (26 sets, daily range): BP systolic 146–182; BP diastolic 61–78
[2019-08-31 05:26] LABS: ALBUMIN 1.5 g/dL (3.4-5.0); CALCIUM 8.6 mg/dL (8.5-10.1); CREATININE 2.6 mg/dL (0.7-1.3); PHOSPHORUS 4.2 mg/dL (2.5-4.9); POTASSIUM 3.5 mmol/L (3.5-5.1)
[2019-08-31 06:24] LABS: HEMATOCRIT 23.6 % (42.0-52.0); HEMOGLOBIN 7.9 gm/dL (14.0-18.0); MCH 24.6 pg (26.0-34.0); MCHC 33.5 g/dL (28.0-37.0); MCV 73.4 fL (80.0-100.0); PLATELET COUNT 211 thou/uL (150-400); RBC 3.21 mil/uL (4.50-6.00); RDW 17.4 % (10.5-14.5); WBC 7.5 thou/uL (4.0-11.0)
--- NOTE | 2019-08-31 06:34 | NUR ---
Received report from offgoing RN and assumed patient care. Patient remains on the ventilator and is lightly sedated with Propofol. Patient follows commands appropriately and remains having loose stools. Adequate urine output is noted. Patient's VS remained stable and no acute events occurred during this shift.
--- NOTE | 2019-08-31 07:20 | NUR ---
RT PLACED VENT ON CIPAP SETTING. PROPOFOL DROPPED TO 10 MCG/KG/MIN. REPOSITIONED PATIENT ONTO HIS BACK AND HOB 45%. PATIENT CALM AND ALERT.
[2019-08-31 07:34] LABS: ABSOLUTE NEUTROPHILS 4.7 thou/uL (1.4-8.2); NUCLEATED RBCS 1 /100WBC; PLATELET ESTIMATE NORMAL
[2019-08-31 07:56] LABS: BE(vivo) -2.7 mmol/L (-2 to +3); HCO3 22.1 mmol/L (22.0-26.0); PCO2 37.8 mmHg (35.0-45.0); PO2 88.2 mmHg (80.0-100.0); pH 7.384 (7.360-7.450); sO2 96.7 % (92.0-98.0)
--- NOTE | 2019-08-31 08:40 | NUR ---
SPOKE WITH DR CANO REGARDING PATIENT STATUS ON CPAP. PROPOFOL DECREASED AT 0720; STOPPED AT 0750. PATIENT ALERT, FOLLOWING COMMANDS, AND CALM. CPAP STARTED 0720. HR 71 OXYGEN SAT GREATER THAN 97% TV 600 VC 1L AND NIF -[address] CANO EXTUBATE.
--- NOTE | 2019-08-31 08:50 | NUR ---
3078 CONTACTED PATIENT'S DAUGHTER RAJENDRA VIA PHONE REGARDING PATIENT STATUS UPDATE. DISCUSSED PLAN TO EXTUBATE THIS MORNING. DAUGHTER EXPRESSED UNDERSTANDING AND REQUESTED A FACE TIME VISIT LATER IF PATIENT FEELS OK.
--- NOTE | 2019-08-31 08:50 | NUR ---
SPOKE WITH PATIENT'S DAUGHTER VIA PHONE ABOUT PATIENT STATUS AND PLAN TO EXTUBATE TODAY.
--- NOTE | 2019-08-31 14:15 | NUR ---
ASSISTED PATIENT TO FACE-TIME HIS FAMILY FROM [id number]. FAMILY UPDATED VIA VIDEO CALL.
--- NOTE | 2019-08-31 16:40 | NUR ---
ASSISTED PATIENT TO FACE TIME WITH HIS FAMILY AGAIN.
--- NOTE | 2019-08-31 18:25 | NUR ---
PATIENT DID WELL ON CPAP. PATIENT EXTUBATED 08/30 AT 0925. OG/TF/RESTRAINTS DISCONTINUED. PATIENT TOLERATING 4L OXYGEN PER NASAL CANNULA BY END OF SHIFT. OXYGEN SATS MAINTAINED 97%-100%. PATIENT FACE-TIMED WITH FAMILY TODAY. CENTRAL LINE DRESSING AND CAPS CHANGED. PERKINS AND FMS CONTINUED.
[2019-09-01] VITALS (27 sets, daily range): BP systolic 149–181; BP diastolic 57–81
[2019-09-01 05:21] LABS: CALCIUM 8.8 mg/dL (8.5-10.1); CREATININE 2.6 mg/dL (0.7-1.3); POTASSIUM 3.5 mmol/L (3.5-5.1)
--- NOTE | 2019-09-01 05:53 | NUR ---
PATIENT ALERT.ABLE TO SPEAK SOME WORDS BUT IS HARD TO UNDERSTAND YET AT THIS TIME.FOLLOWS COMMANDS.BP HAS BEEN ELEVATED.HYDRALAZINE PRN GIVEN.REPOSITIONED Q2 HOURS AND NEEDED.MONITOR SHOWS SR.POC CONTINUED.
[2019-09-01 06:41] LABS: HEMOGLOBIN 7.8 gm/dL (14.0-18.0); MCH 24.7 pg (26.0-34.0); MCV 72.6 fL (80.0-100.0); RBC 3.17 mil/uL (4.50-6.00); RDW 17.5 % (10.5-14.5); WBC 8.3 thou/uL (4.0-11.0)
--- NOTE | 2019-09-01 14:45 | NUR ---
discussed during los, possible will be ready for dc by sunday, speech full eval. o2 at 2 L./nc. will cont following as needed for dc needs. [facility] and pt want if needs skilled.
--- NOTE | 2019-09-01 15:53 | NUR ---
FAXED REFERRAL TO [facility] SPOKE WITH EAN IN ADM SHE RECEIVED REFERRAL AND WILL REVIEW. DP TO FOLLOW.
[2019-09-02] VITALS (7 sets, daily range): BP systolic 152–177; BP diastolic 49–74
--- NOTE | 2019-09-02 01:25 | NUR ---
REPORT GIVEN TO ONCOMING RN, PATIENT TRANSFERRED TO [facility] ON 09/02/19 0110.
--- NOTE | 2019-09-02 04:08 | NUR ---
RECEIVED REPORT FROM ICU NURSE.PATIENT ARRIVED TO ROOM 209.ALERT.O2 2L NC.REPOSITIONED Q2 HOURS AND NEEDED.PERKINS TO DD.RECTAL TUBE INTACT.IV FLUIDS INFUSING.MONITOR SHOWS SR.POC CONTINUED.
--- NOTE | 2019-09-02 05:44 | NUR ---
SPOKE WITH DAUGHTER (CHANDLER HUNG) AND NOTIFIED HER THAT PATIENT WAS TRANSFERRED OUT OF THE ICU TO CCU.
[2019-09-02 06:20] LABS: HEMATOCRIT 24.9 % (42.0-52.0); HEMOGLOBIN 8.2 gm/dL (14.0-18.0); MCH 24.6 pg (26.0-34.0); MCV 74.5 fL (80.0-100.0); RBC 3.35 mil/uL (4.50-6.00); RDW 17.5 % (10.5-14.5); WBC 8.4 thou/uL (4.0-11.0)
[2019-09-02 06:39] LABS: ALBUMIN 1.8 g/dL (3.4-5.0); CALCIUM 8.5 mg/dL (8.5-10.1); CREATININE 2.5 mg/dL (0.7-1.3); PHOSPHORUS 3.5 mg/dL (2.5-4.9); POTASSIUM 3.2 mmol/L (3.5-5.1)
--- NOTE | 2019-09-02 18:54 | NUR ---
ASSUMED CARE APPROX 0700. PT SLEEPING MOST OF SHIFT, BUT EASY TO AROUSE. STILL REQUIRING SUCTION PRN. FAILED SWALLOW STUDY THIS SHIFT AND STILL NPO. POTASSIUM REPLACED X2 TODAY. ORDER PLACED FOR ORAL POTASSIUM. SPOKE TO DR. SHORE REGARDING PT BEING NPO. STATES TO D/C POTASSIUM AND WILL RE-EVALUATE TOMORROW. WILL CONTINUE TO MONITOR.
[2019-09-03] VITALS (7 sets, daily range): BP systolic 160–175; BP diastolic 12–80
--- NOTE | 2019-09-03 04:57 | NUR ---
PT IS AWAKE. WILL SQUEEZE HIS RIGHT HAND ON COMMMAND. NON VERBAL. SHAKES HIS HEAD NO IF ASKED HAVING PAIN. LUNGS ARE CLEAR TO DIMINIHSED. ON 02 AT 2 LITERS NASAL CANULA. SINUS RHYTHM ON THE TRUST AND ESTATES ATTORNEY . FECAL MANAGEMENT SYSTEM IN PLACE. PERKINS TO DD WITH YELLOW URINE PRESENT. TURN 2 HOURS AND REPOSITION. HANDS ARE SWOLLEN 3 PLUS AND PROPED UP ON PILLOWS FOR SWELLING. WILL CONTINUE TO ASSESS AND MONITOR PER NURSING
[2019-09-03 05:24] LABS: ALBUMIN 1.9 g/dL (3.4-5.0); CALCIUM 8.5 mg/dL (8.5-10.1); CREATININE 2.3 mg/dL (0.7-1.3); PHOSPHORUS 3.5 mg/dL (2.5-4.9); POTASSIUM 3.6 mmol/L (3.5-5.1)
[2019-09-03 05:43] LABS: TSH 2.033 uIU/mL (0.358-3.740)
--- NOTE | 2019-09-03 09:48 | NUR ---
ASSUMED CARE APPROX 0700. PT MORE ALERT THIS MORNING. ORIENTED TO SELF. DENIES ACUTE PAIN. PT AFEBRILE THIS AM. PT ON ROOM AIR THIS AM FROM 2LNC YESTERDAY. 02 SAT 93% ON ROOM AIR. 2LNC NOW RESUMED DUE TO SATS IN THE UPPER 80S WITH PT/OT. WILL CONTINUE TO MONITOR. .
--- NOTE | 2019-09-03 14:02 | NUR ---
Spoke with dtr Kristi discussed [facility] is not able to accept her [place]. Discussed [facility] acute rehab following emailed dtr [facility] skilled list to review. Dtr reports father diagnosed with Lewy Body Syndrome. Reports he had similar situation in 2018. Dtr reports in future may be looking at Assisted Living in future. Patient resides in [facility], operated by [facility]. Dtr to review skilled list. Patient NPO with fecal management system. Rn reports more alert today was sleeping most of day yesterday. Patient working with therapy but decrease endurance to work with therapy.
[2019-09-03 21:06] LABS: IgA 849 mg/dL (61-437); IgG 1031 mg/dL (603-1613); IgM 45 mg/dL (20-172)
[2019-09-04] VITALS (9 sets, daily range): BP systolic 156–188; BP diastolic 56–75
[2019-09-04 07:44] LABS: ALBUMIN 2.1 g/dL (3.4-5.0); CALCIUM 8.6 mg/dL (8.5-10.1); CREATININE 2.2 mg/dL (0.7-1.3); PHOSPHORUS 4.6 mg/dL (2.5-4.9); POTASSIUM 3.9 mmol/L (3.5-5.1)
[2019-09-04 10:04] LABS: HEMATOCRIT 25.8 % (42.0-52.0); HEMOGLOBIN 8.6 gm/dL (14.0-18.0); MCH 24.6 pg (26.0-34.0); MCHC 33.2 g/dL (28.0-37.0); MCV 74.1 fL (80.0-100.0); RBC 3.49 mil/uL (4.50-6.00); RDW 17.8 % (10.5-14.5); WBC 10.4 thou/uL (4.0-11.0)
--- NOTE | 2019-09-04 13:50 | NUR ---
Dtr Nicky here to visit pt and was with pt after his video swallow. She was able to get update from ST which recommended a pureed diet with nectar thickened liquids. She also say the attending and they discussed the pt's MRI results. Nicky notes that the pt is not very interactive/conversant which is unusual for him. She did receive the SNF listing for [facility] and is discussing it with her sister. She will call cm back this afternoon with 2-3 choices for referrals. Pt starting po diet today as he has been on PPN. SNF vs acute rehab recommended at this time per the care team. [facility]/rehab medicine is following along.
--- NOTE | 2019-09-04 20:16 | NUR ---
ASSUMMED PT CARE AT APPROXIMATELY 0700. PT AWAKE AND ORIENTED TO SELF. FREQUENT REORIENTATION PROVIDED. ASSESSMENT CHARTED. FALL PRECAUTIONS IN PLACE. PT DENIES HAVING CHEST PAIN. PT DENIES HAVING SOB. PT DENIES HAVING CHEST PAIN. EDUCATED PT AN PT'S FAMILY ABOUT POC. PT STATED UNDERSTANDING AND DENIED HAVING FURTHER QUESTIONS. INFORMED DR. SHORE OF PT'S HIGH BP TWO SEPARATE TIMES. DR. SHORE STATED UNDERSTANDING AND GAVE NEW ORDERS. NEW ORDERS IMPLEMENTED. ELEVATED BP, PHYSCIAN AWARE. VITAL SIGNS STABLE. BLOOD SUGARS STABLE. PT DIET CHANGE TO PUREED C NECTAR THICK. PT TOLERATED DIET. PT COMFORTABLE. PT DENIED HAVING FURTHER CONCERNS.
[2019-09-05] VITALS (7 sets, daily range): BP systolic 150–214; BP diastolic 60–78
--- NOTE | 2019-09-05 01:22 | NUR ---
SLEEPING MOST OF TIME. AROUSES WHEN SPOKEN TO BUT REMAINS DROWSY. ORIENTED TO SELF AND NODS YES/NO APPROPRIATLY. TURNED EVERY 2 HOURS FOR COMFORT AND SKIN CARE. REINFORCE CARES PERFORMING AND MEDICATIONS. WORKING ON GOALS AND PLAN OF CARE FOR NOC. PROGRESSING TOWARDS GOALS FOR TRANSFER TO SKILLED. CONTINUE TO ASSES CLOSELY. LABOTOL AND HYDRALIZINE GIVEN PRN FOR ELEVATED BLOOD PRESSURE.
[2019-09-05 06:33] LABS: CALCIUM 8.6 mg/dL (8.5-10.1); CREATININE 2.1 mg/dL (0.7-1.3); POTASSIUM 3.9 mmol/L (3.5-5.1)
--- NOTE | 2019-09-05 13:31 | NUR ---
PPN dc'd today and pt tolerated new modified po diet. Responding to yes/no questions and was able to tell nursing his name and . Case discussed with the care and possible dc Sunday/Sunday if he continues to improve. Dtr Nicky updated and she indicates family would prefer SNFs: first [facility], [facility]nd [facility], and [facility]. DC facilities planner to fax referrals and check bed availability. Will request auth submission today. [facility] is still following but feel SNF would be more appropraite level of care at this time.
--- NOTE | 2019-09-05 16:40 | NUR ---
FAXED REFERRAL TO [facility] SPOKE WITH SAY IN ADM SHE RECEIVED REFERRAL AND TENTATIVELY ACCEPTING PT THERE MIGHT BE BED AVAILABLE AND THEY HAVE TO SUBMIT FOR AUTH. WILL F/U WITH [facility] ON SUNDAY.
--- NOTE | 2019-09-05 19:29 | NUR ---
ASSUMED CARE PT SHIFT CHANGE. ASSESSMENTS CHARTED. MEDS GIVEN PER MAY. PT ALERT TO SELF. CONFUSED. VSS BP ELEVATED. BP MEDS GIVEN ORDERED. DTR VISITED WIHT PT THIS SHIFT, DISCUSSED WITH SW REGARDING PLACEMENT. PERKINS REMAINS IN PLACE WITH ADEQUATE OUTPUT. APPETITE ADEQUATE THIS SHIFT, REQUIRING ASSISTANCE WIHT FEEDING. PT CURRENTLY RESTING IN NAD. DENIES NEEDS. WILL CONT TO MONITOR AND FOLLOW POC. REPORT PASSED ONTO NOC BILL.
[2019-09-06 03:15] LABS: HEMATOCRIT 23.7 % (42.0-52.0); HEMOGLOBIN 7.9 gm/dL (14.0-18.0); MCH 24.7 pg (26.0-34.0); MCHC 33.1 g/dL (28.0-37.0); MCV 74.5 fL (80.0-100.0); RBC 3.18 mil/uL (4.50-6.00); RDW 17.7 % (10.5-14.5); WBC 9.7 thou/uL (4.0-11.0)
[2019-09-06 03:31] LABS: ALBUMIN 2.1 g/dL (3.4-5.0); CALCIUM 8.3 mg/dL (8.5-10.1); CREATININE 2.2 mg/dL (0.7-1.3); PHOSPHORUS 4.2 mg/dL (2.5-4.9)
--- NOTE | 2019-09-06 03:48 | NUR ---
ALERT TO SELF.FOLLOWS COMMANDS.WILL TALK AT TIMES.NO SIGNS OF PAIN NOR GRIMACING NOTED.REPOSITIONED Q2 HOURS AND NEEDED.PERKINS TO DD.RECTAL TUBE INTACT.MONITOR SHOWS SR.POC CONTINUED.
[2019-09-06 04:30] VITALS: BP 167/67
[2019-09-06 07:55] VITALS: BP 155/62
--- NOTE | 2019-09-06 10:47 | NUR ---
COMPLETE CARES. SR PER TELE. ABLE TO VERBALIZE NEEDS. BRISK APPETITE AT BREAKFAST. RESP EVEN AND UNLABORED. FALL PRECAUTIONS IN PLACE. WILL CONTINUE TO FOLLOW CLOSELY.
[2019-09-06 12:05] VITALS: BP 130/71
[2019-09-06 15:45] VITALS: BP 164/65
[2019-09-06 20:30] VITALS: BP 166/67
[2019-09-07 04:45] VITALS: BP 164/66
[2019-09-07 06:28] LABS: ABSOLUTE NEUTROPHILS 5.4 thou/uL (1.4-8.2); BASOPHILS 1.7 % (0.0-2.0); EOSINOPHILS 2.9 % (0.0-3.0); HEMATOCRIT 23.2 % (42.0-52.0); HEMOGLOBIN 7.6 gm/dL (14.0-18.0); LYMPHOCYTES 22.1 % (24.0-44.0); MCH 24.9 pg (26.0-34.0); MCV 75.6 fL (80.0-100.0); MONOCYTES 7.5 % (1.0-8.0); PLATELET COUNT 170 thou/uL (150-400); POLYS 65.8 % (36.0-66.0); RBC 3.06 mil/uL (4.50-6.00); RDW 17.7 % (10.5-14.5); WBC 8.3 thou/uL (4.0-11.0)
[2019-09-07 06:40] LABS: ALBUMIN 2.1 g/dL (3.4-5.0); CALCIUM 7.9 mg/dL (8.5-10.1); PHOSPHORUS 3.5 mg/dL (2.5-4.9); POTASSIUM 3.6 mmol/L (3.5-5.1)
[2019-09-07 07:59] VITALS: BP 157/58
--- NOTE | 2019-09-07 08:42 | NUR ---
ASSUME CARE 1900. PT/VITALS STABLE. A/O TO PERSON AND SOMETIMES PLACE, BUT CARIES OUT CONVERSATION APPROPRIATELY. PT ASNSWERS QUESTIONS AND COMMUNICATES NEEDS APPROPRIATELY. ASSESSMETN CHARTED. PROGRESSING WELL WITH POC. PLAN IS TO CONITNUE TO MONITIOR LOC/TREAT WITH ABX AND FUIND PLACEMENT FOR CONTINUM OF CARE. WILL CONTINUE TO MONITOR AND FOLLOW WITH POC
--- NOTE | 2019-09-07 11:18 | NUR ---
ASSUMED CARE PT SHIFT CHANGE. ASSESSMNET CHARTED. MEDS GIVEN PER MAY. PT ALERT TO SELF NAD PLAEC, FORGETFUL AT TIMES. PT WEAK, Q2 TURNS ENFORCED. APPETITE ADEQUATE, URINE OUTPUT ADEQUATE AND NOTED. PLAN IS FOR PT TO GO TO [facility]. PT DENYNG NEEDS AT THIS TIME. REPORT PASSED ON TO CHIDI KHAN.
[2019-09-07 11:46] VITALS: BP 160/70
[2019-09-07 15:51] VITALS: BP 159/61
--- NOTE | 2019-09-07 18:26 | NUR ---
ASSUMED CARE AT 1200, FROM BILL WATKINS. ASSESSMENT DOCUMENTED,MINIMUM VERBAL RESPONS, ALERT AND ORIENTED X2. PROGRESSING SLOWLEY TOWARDS GOALS. DENIES ANY DISCOMFORT, Q2 POSITONED NEEDED AND FOR COMFORT. BP REMAINS 150-160/58-70. WILL CONTINUE WITH POC.
[2019-09-07 20:00] VITALS: BP 161/58
[2019-09-08 04:13] VITALS: BP 161/74
[2019-09-08 05:10] LABS: ABSOLUTE NEUTROPHILS 4.9 thou/uL (1.4-8.2); BASOPHILS 1.2 % (0.0-2.0); EOSINOPHILS 3.4 % (0.0-3.0); HEMATOCRIT 23.1 % (42.0-52.0); HEMOGLOBIN 7.6 gm/dL (14.0-18.0); LYMPHOCYTES 23.8 % (24.0-44.0); MCH 24.6 pg (26.0-34.0); MCHC 32.8 g/dL (28.0-37.0); MONOCYTES 7.1 % (1.0-8.0); PLATELET COUNT 168 thou/uL (150-400); POLYS 64.5 % (36.0-66.0); RBC 3.08 mil/uL (4.50-6.00); RDW 17.9 % (10.5-14.5); WBC 7.7 thou/uL (4.0-11.0)
--- NOTE | 2019-09-08 05:20 | NUR ---
INCREASING HIS STRENGTH. HE ALSO IS MORE TALKATIVE TONIGHT. COOPERATIVE AND PLEASANT. DENIES PAIN. CONTINUES ON IV FLUIDS. URNS 2 Q HOURS.
[2019-09-08 05:23] LABS: INR 1.1; PROTIME 11.5 Seconds (9.3-11.4)
[2019-09-08 05:41] LABS: CALCIUM 7.8 mg/dL (8.5-10.1); PHOSPHORUS 3.9 mg/dL (2.5-4.9); POTASSIUM 3.7 mmol/L (3.5-5.1)
[2019-09-08 05:46] LABS: ALBUMIN 2.1 g/dL (3.4-5.0); DIRECT BILIRUBIN < 0.1 mg/dL (<0.1-0.2); SGOT 34 U/L (15-37); SGPT 70 U/L (30-65); TOTAL BILIRUBIN 0.4 mg/dL (0.2-1.0); TOTAL PROTEIN 5.4 g/dL (6.4-8.2)
[2019-09-08 08:30] VITALS: BP 179/92
[2019-09-08 11:08] VITALS: BP 136/77
[2019-09-08 16:00] VITALS: BP 159/82
--- NOTE | 2019-09-08 16:50 | NUR ---
ASSUMED CARE AT SHIFT CHANGE, ALERT AND ORIENTED, AND FORGETFUL. ASKING TO GO HOME TODAY, AND WAS TRYING TO GET OUT OF THE BED.BP 179-136/92-77, WNL AFTER MORNING MEDS GIVEN. ASSESSMENT DOCUMENTED, PATIENT PUSHED FECAL MNGT OUT OF HIS RECTUM, AND MELANY NOTIFIED. PATIENT DAUGHTER AT BEDSIDE AND UPDATED WITH PATIENT POC. AND WILL COTINUE WITH POC.
--- NOTE | 2019-09-08 16:53 | NUR ---
Faxed referral to [facility]. They are acceting clinically and have not submitted for auth. Phys strongly reports patient with need for acute rehab. 5N to [facility] in am. Updated dtr of above. She reports patient wanted to call her to pick him up today. lacks insight into his limitations. Dtr reports he cannot return home independently. She is working with sister to have some things in place to assist with medication management and oversight. She reports she can right of way worker until Oct so can cont to assist with impleminting services in his independent home.
[2019-09-08 20:05] VITALS: BP 180/79
[2019-09-08 22:49] VITALS: BP 18/73
--- NOTE | 2019-09-08 23:16 | NUR ---
ASSESSMENT DOCUMENTED.PT BEEN RESTING IN NO ACUTE DISTRESS.A/OX3 WITH FORGETFULNESS,FOLLOWS COMMANDS APPROPRIATELY.BLOOD PRESSURE ELEVATED TREATED WITH PRN AND SCHEDULED MEDS PER ORDERS.ON RA WITH SPO2 ABOVE 92%,PRN O2 AVAILABLE ,DENIES RESP DISTRESS.GREGORIO GUTIERRES.PT UPADATED ON POC TO TRANSFER TO [facility],INAGREEMENT.PT DENIED ANY NEEDS OR CONCERNS.TRANSFERRED TO [facility],REPORT GIVEN TO RECEIVING RN.
[2019-09-09 05:42] LABS: ALBUMIN 2.1 g/dL (3.4-5.0); CALCIUM 7.8 mg/dL (8.5-10.1); CREATININE 1.9 mg/dL (0.7-1.3); PHOSPHORUS 4.2 mg/dL (2.5-4.9); POTASSIUM 3.5 mmol/L (3.5-5.1)
[2019-09-09 08:00] VITALS: BP 144/74
[2019-09-09 12:10] VITALS: BP 127/61
--- NOTE | 2019-09-09 13:51 | NUR ---
YVONNE reviewed chart and spoke with nursing and attending physician. Pt was transferred to 3 from . Pt is progressing towards goals for discharge. YVONNE notified by N director of pediatric rehabilitation that pt does not meet criteria for admission to . Discussed with pt's dtr, who is agreeable with [facility] submitting for insurance authorization. YVONNE left message for crystal machining coordinator at [facility]. YVONNE is following to assist as needed with discharge planning.
[2019-09-09 16:30] VITALS: BP 140/58
--- NOTE | 2019-09-09 16:39 | NUR ---
PATIENT SEEN BY SMOOTH MOREJON NP WITH DR. SANTOS, THIS DATE FOR FOLLOW UP. PATIENT'S DAUGHTER WAS PRESENT AND AFTER DISCUSSION WOULD LIKE PATIENT TO GO TO [facility] FOR REHAB NEEDS. SHUTTLE CAR OPERATOR INFORMED. THANK YOU FOR THIS REFERRAL.
--- NOTE | 2019-09-09 19:15 | NUR ---
PT KNOWS HER NAME AND HIS FAMILY , HE CAN FOLLOW COMMANDS SLOWLY,RN HAS REPORTED TO DR ABOUT PT'S DIRRHEA, PT IS CONTINUING IV FLIUD D5 @100ML/HR, PT IS CONTINUING O2 2L/MIN/NC, PT'S VS AND BS ARE STABLE, PT NEEDS HELP MEALS AND CHANGE POSITION. PT DENIES PAIN AT THIS TIME.
[2019-09-09 19:19] VITALS: BP 146/52
--- NOTE | 2019-09-09 23:04 | NUR ---
UPON ASSESSMENT PATIENT WAS IN THE ROOM SLEEPING, PT HAD BEEN WOKEN UP TO PROVIDE MEDICATION, GROUND UP AND FED. NO COMPLAINTS FROM THE PATIENT AT THIS TIME. PT HAD LIQUID DARK BROWN BM PRESENT, PT WAS CLEANSED W/ THE HELP OF A SWITCHBOARD OPERATOR ASSISTANT. PTS CATHETER CARE WAS PROVIDED, THE NC WAS DIRTY AND HAD BUILD UPS SO NEW CANULA WAS PROVIDED WELL. LINENS WERE CHANGED, PT WAS PLACED ON THE R SIDE TO FACILITATE SKIN PROTECTION. PT HAS BEEN PICKING AT THE R INTERNAL JUGULAR 3 LUMEN PICC LINE, DRESSING WAS REINFORCED AND WILL BE CHANGED NEEDED, THE LOCATION OF THE SITE IS BY THE PT'S MAI SO IT IS COMPROMISED WITH THE FACIAL HAIR. NO OTHER CONCERNS AT THIS TIME, NO SPECIFIC CHANGES FROM YESTERDAY'S CONDITION. WILL CONTINUE TO MONITOR.
[2019-09-10 03:33] VITALS: BP 144/56
[2019-09-10 06:07] LABS: CALCIUM 7.7 mg/dL (8.5-10.1); CREATININE 1.9 mg/dL (0.7-1.3); PHOSPHORUS 4.3 mg/dL (2.5-4.9); POTASSIUM 3.3 mmol/L (3.5-5.1)
[2019-09-10 07:35] VITALS: BP 154/60
[2019-09-10 11:23] VITALS: BP 129/54
--- NOTE | 2019-09-10 11:52 | NUR ---
YVONNE reviewed chart and spoke with nursing and attending physician. Pt is progressing towards goals for discharge. Awaiting insurance authorization at this time for admission to [facility]. YVONNE spoke with Marsha in admission, who states they are able to accept pt today pending the authorization. YVONNE met with pt and dtr, Nicky, at bedside to provide update. Both are agreeable with discharge plan. Chart copy requested from 4W. YVONNE is following to assist as needed with discharge planning.
--- NOTE | 2019-09-10 12:02 | HC ---
[facility] [place] [address] CONSULTATION Name: GIBSON HUGN Room #: 363-P ADM IN M.R.#: [id number] Admission: 08/24/19 Attend Phys: Vinicio Velasco MD Discharge: Date of : 52 Report #: [id number] THIS REPORT FOR: cc: Sylvia Farris MD,Hugo Luna MD, MD ~ CC: Sylvia Velasco DATE OF SERVICE: 09/02/2019 HISTORY OF PRESENT ILLNESS: This is a 69-year-old male patient who was seen by me and I discussed the patient with Dr. Lund. I reviewed the patient's records, it looks like the patient had a pretty protracted course in the hospital. Review of records indicate that this patient was hypoxic en route to the hospital. It also indicated that he has history of dementia. He also has a history of alcoholism and he was found with two empty bottles of wine next to him. He is getting thiamine. At one time, he also had a temperature. He is profoundly weak in all 4 extremities. Examination is difficult in this patient because he can barely follow simple commands. REVIEW OF SYSTEMS: The patient does not provide any. From the record, it indicates the patient has renal failure. He was hypoxic when he came in. He has not been moving much. He is not able to follow simple commands on a regular basis. He had some right leg surgery, back surgery, appendix, diabetes, hypertension, hypercholesterolemia, Lewy body dementia, alcoholism and alcohol withdrawal as per record. I do not see any specific contraindication for doing an MRI. This was his relevant 14-point review of system. PAST MEDICAL HISTORY: Positive for what looks like dementia. FAMILY HISTORY: Unavailable. SOCIAL HISTORY: He has a history of heavy alcohol abuse. PHYSICAL EXAMINATION: Indicates that he is alert. He sometime will follow command. He did not say a single word to me. He is profoundly weak in all four extremities. His reflexes are absent. Weakness appeared to be more on the right than the left, but that is not certain. Attempt to make the sensory examination was unsuccessful. He did not cooperate with the fundus examination. He does not appear to be in respiratory difficulty. His cardiac examination appears noncontributory. His blood pressure is 155/58, respiration is 18, pulse is 77, temperature is 99.7. LABORATORY DATA: Indicate a hemoglobin of 8.2. His sodium is 146. His GFR is 31. He did not have [place] [address] CONSULTATION Name: GIBSON HUNG Room #: 363-P [facility] IN M.R.#: [id number] Admission: 08/24/19 Attend Phys: Vinicio Velasco MD Discharge: Date of : 52 Report #: [id number] IMPRESSION: It is very difficult to form in this patient. It looks like he has underlying dementia with a compromised brain with some question of Lewy body dementia. On top of that, he has hypoxemia and he also had a history of alcoholism. 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 I discussed with Dr. Lund we will work him up to some extent. The best will be to do the MRI. If there is no contraindication for doing that, that is okay. Main treatment is going to be symptomatic. About 50 minutes of time was spent taking care of this patient today and majority coordinating and review of the record. <ELECTRONICALLY SIGNED> By: Hugo Graham MD 09/10/19 1202 [id number] [id number] Hugo Graham MD /nt
[2019-09-10] MEDS ORDERED: AUGMENTIN 500-1 EACH PO (12:29)
[2019-09-10 15:48] VITALS: BP 164/77
--- NOTE | 2019-09-10 17:49 | NUR ---
PATIENT RESTED IN BED THROUGH THE DAY. HAD NUMEROUS BM. HE DOES NO SEEM TO BE IN PAIN OR DISTRESS. NEEDS ASSIST TO BE FED DURING DINNER. RESPIRAIONS ARE N0N LABORED. WILL CONT WITH PLAN OF CARE.
[2019-09-10 19:50] VITALS: BP 110/55
[2019-09-10 20:00] VITALS: BP 169/73
[2019-09-11 05:07] VITALS: BP 162/72
--- NOTE | 2019-09-11 06:06 | NUR ---
PT RESTED IN BED ALL EVENING. PT IS CONFUSED, BUT CAN ANSWER SOME QUESTIONS. AT 0345 ROUNDS PT HAD REMOVED HIS PICC. PT HAD ALSO HAD A BM. CLEANED AND COMPLETE BED CHANGE. PT SHOULD DC TODAY. WILL CONTINUE TO MONITOR.
[2019-09-11 06:54] LABS: ALBUMIN 2.4 g/dL (3.4-5.0); PHOSPHORUS 3.6 mg/dL (2.5-4.9); POTASSIUM 3.9 mmol/L (3.5-5.1)
[2019-09-11 07:31] VITALS: BP 173/65
--- NOTE | 2019-09-11 10:51 | NUR ---
YVONNE received call from Marsha [facility] last evening stating they are still waiting for insurance authorization from [facility]. Ref# [id number]. YVONNE placed call to [facility] this morning and spoke with Doris. Doris confirms that case is currently in review and they have 1-4 days to make a determination. Pt is medically stable for discharge to SNF pending insurance authorization. YVONNE updated attending physician. YVONNE is following to assist as needed with discharge planning.
--- NOTE | 2019-09-11 14:56 | NUR ---
PATIENT IS PLEASANT RESTING IN BED AT THIS TIME. RESPIRATIONS ARE NON LABORED. PLEASANT WITH CARES. DOES NOT SEEM TO BE IN PAIN OR DISTRESS. INCONT OF BOWEL. PERKINS IN PLACE. WILL CONT WITH PLAN OF CARE.
[2019-09-11 16:59] VITALS: BP 147/61
[2019-09-11 21:10] VITALS: BP 101/69
[2019-09-12 05:00] VITALS: BP 106/67
[2019-09-12 05:55] LABS: ALBUMIN 2.1 g/dL (3.4-5.0); CREATININE 1.9 mg/dL (0.7-1.3); PHOSPHORUS 3.9 mg/dL (2.5-4.9); POTASSIUM 4.6 mmol/L (3.5-5.1)
[2019-09-12 07:55] VITALS: BP 149/64
[2019-09-12 08:26] LABS: HEMATOCRIT 22.2 % (42.0-52.0); HEMOGLOBIN 7.4 gm/dL (14.0-18.0); MCH 25.3 pg (26.0-34.0); MCHC 33.2 g/dL (28.0-37.0); RBC 2.92 mil/uL (4.50-6.00)
[2019-09-12 11:29] VITALS: BP 149/65
--- NOTE | 2019-09-12 12:12 | NUR ---
YVONNE reviewed chart and spoke with nursing and attending physician. Awaiting insurance authorization for SNF placement at [facility]. YVONNE faxed updated PT note and progress notes to facility for review. SW updated pt and pt's dtr, Nicky, at bedside. YVONNE is following to assist as needed with discharge planning.
[2019-09-12 15:43] VITALS: BP 128/62
--- NOTE | 2019-09-12 18:02 | NUR ---
PATIENT WAS UP ON CHAIR FOR A FEW HOURS THIS AM. HE WAS CONTINENT OF BOWEL ONCE. HE REQUESTED TO USE THE BATHROOM. HE HAS GOOD APPETIE TODAY. CONT TO HAVE NUMEROUS BOWEL MOVEMENT. HE IS ALERT X2. WILL CONT WITH PLAN OF CARE.
[2019-09-12 19:08] VITALS: BP 143/74
--- NOTE | 2019-09-12 23:38 | NUR ---
ASSUMED PT CARE AT 1900. PT IS ORIENTED TO SELF, AWARE THAT HE IS IN THE HOSPITAL BUT UNSURE OF WHICH ONE. PM MEDS GIVEN CRUSHED IN APPLESAUCE. PT HAD SLEPT THROUGH DINNER AND WAS HUNGRY SO THIS RN FED HIM FOOD UNTIL HE FELT BETTER. BILATERAL HANDS EDEMATOUS WITH STRONG PULSES. PERKINS PATENT WITH GOOD OUTPUT. NO COMPLAINTS OF PAIN. NO LOOSE STOOLS THUS FAR. PT IS CURRENTLY SITTING UP IN BED WATCHING TV, WILL CONTINUE TO MONITOR.
[2019-09-13 00:20] VITALS: BP 148/73
[2019-09-13 05:18] VITALS: BP 168/76
[2019-09-13 06:08] LABS: HEMATOCRIT 23.5 % (42.0-52.0); HEMOGLOBIN 7.7 gm/dL (14.0-18.0); MCH 25.2 pg (26.0-34.0); MCHC 32.7 g/dL (28.0-37.0); MCV 77.3 fL (80.0-100.0); RBC 3.04 mil/uL (4.50-6.00); RDW 20.2 % (10.5-14.5)
[2019-09-13 07:56] VITALS: BP 149/92
--- NOTE | 2019-09-13 15:13 | NUR ---
PT IS A&OX3, BUT PT IS FORGETFUL AND REPONSE SLOWLY, PT HAS ONE TIME DEEP YELLOW LOOSE STOOL, NO BLOOD IN STOOL BY THIS TIME, PT'S HGB IS 7.7 TODAY, PT NEEDS HELP HIS MEALS, AND CHANGE POSITION, PT'S VS ARE STABLE , PT DENIES SOB AND PAIN AT THIS TIME.
[2019-09-13 15:26] VITALS: BP 144/74
[2019-09-13 19:01] VITALS: BP 141/58
[2019-09-14 04:26] VITALS: BP 156/53
--- NOTE | 2019-09-14 04:37 | NUR ---
ASSESSMENT: PT REMAIN ALERT AND ORIENT TIMES THREE WITH TIMES OF FORGETFULLNESS. CONTINUE TO HAVE LOOSE, SEMI-LIQ, FOUL SMELLING STOOL. DENIES ABD PAIN AND DISCOMFORT. VSS, AFEBRILE. PERKINS PATENT WITH CLEAR YELLOW OU TPUT. TURNED Q 2 HOURS. PT IS TO BE NPO AT [facility] 09/14 FOR POSSIBLE EGD. TOLERATE PO MEDS CRUSHED IN APPLE SAUCE. SLOW PROGRESS TOWARDS DC GOALS. WILL CONTINUE TO MONITOR.
[2019-09-14 07:44] VITALS: BP 153/69
--- NOTE | 2019-09-14 11:26 | NUR ---
CARE ASSUMED AT 0700, PT ALERT AND ORIENTED X3, DELAYED RESPONSE. PT DENIES CHEST PAIN, NAUSEA AND VOMITING. PT IS ON 1L OF OXYGEN VIA NC, NO SIGNS OF DISTRESS NOTED. ASSESSMENT AND VITALS COMPLETED. CALL LIGHT AND TABLE WITHIN REACH. BED AT LOWEST LEVEL WITH ALARM ON.
[2019-09-14 12:01] VITALS: BP 150/61
[2019-09-14 14:57] VITALS: BP 137/57; BP 138/58
--- NOTE | 2019-09-14 15:14 | NUR ---
1500 VITALS SIGNS TAKEN O BLOO TRANSFUION BLOOD VERIFIED WITH BILL MOORE 1505 TRANSFUSION STARTED. 1520 STAYED IN PT ROOM FOR 15MINS, NO SIGNS OF REACTION NOTED. VITALS SIGNS COMPLAYED AND STABLE.
[2019-09-14 19:05] VITALS: BP 146/69
--- NOTE | 2019-09-14 19:10 | NUR ---
1745 BLOOD TRANSFUSION COMPLETED, VITAL SIGNS TAKEN. NO REACTION NOTED.
--- NOTE | 2019-09-14 20:25 | NUR ---
UPON INIIAL ASSESSMENT PT IS RESTING COMFROTABLY IN THE ROOM, SLEEPING AT THIS TIME, NOT MUCH URINE IN THE PERKINS AT THIS TIME. BS WAS 187 SO 3UNITS WILL BE ADMINISTERED. APPEAR PEACEFUL. WILL PROMOTE REST AND SLEEP AT THIS TIME
[2019-09-15 04:14] VITALS: BP 145/60
[2019-09-15 05:44] LABS: HEMATOCRIT 24.6 % (42.0-52.0); HEMOGLOBIN 8.3 gm/dL (14.0-18.0); MCHC 33.6 g/dL (28.0-37.0); MCV 77.4 fL (80.0-100.0); RBC 3.18 mil/uL (4.50-6.00); RDW 19.8 % (10.5-14.5); WBC 6.5 thou/uL (4.0-11.0)
[2019-09-15 07:35] VITALS: BP 152/65
[2019-09-15 11:39] VITALS: BP 159/68
--- NOTE | 2019-09-15 12:26 | NUR ---
1200 PT TAKEN DOWN FOR EGD, DAUGHTER WITH PATIENT.
--- NOTE | 2019-09-15 12:45 | NUR ---
YVONNE reviewed chart and spoke with nursing and attending physician. Pt to have EGD today. Pt being tested for c.diff. YVONNE notified late Sunday by Marsha at [facility] that insurance requires physician to document that pt is medically stable for discharge. This statement is needed in order for insurance to give authorization to [facility]. YVONNE updated attending physician. Awaiting results of EGD at this time. YVONNE faxed progress note, ST note from today and two negative COVID-19 tests to [facility] for review. Spoke with procurement cost coordinator, who spoke with insurance this morning. Insurance also requesting updated PT/OT notes when available. Pt currently off the unit having EGD. YVONNE is following to assist as needed with discharge planning.
[2019-09-15 13:51] VITALS: BP 147/61
--- NOTE | 2019-09-15 14:08 | NUR ---
1350 PT BACK FROM EGD, ASSESSMENT AND VITALS COMPLETED AND STABLE. PER DOCTOR ORDERS, ADVANCE DIET TOLERATED.
[2019-09-15 15:46] VITALS: BP 147/67
--- NOTE | 2019-09-15 18:21 | NUR ---
CARE ASSUMED AT 0700, PT KEPT NPO FOR EGD. PT ALERT AND ORIENTED X4, DENIES ANY CHEST PAIN, NAUSEA AND VOMITING. PT IS ON 2L NC PRN, NO SIGNS OF DISTRESS NOTED. DAUGHTER IN ROOM VISITING UPDATED ABOUT CARE. 1400 SPEECH THERAPY PAGED A COUPLE OF TIMES TO VERIFY PT DIET ORDER, NO ANSWER, KEPT PT ON PUREED UNTIL EVALUATION
--- NOTE | 2019-09-15 18:21 | NUR ---
PERKINS D/C PER DR. SHORE. PT TOLERATED IT WELL.
[2019-09-15 19:51] VITALS: BP 143/62
--- NOTE | 2019-09-16 02:08 | NUR ---
PATIENT HAS BEEN HAVING PROBLEMS WITH URINARY RETENTION SINCE INDWELLING CATHETER REMOVED SHORTLY BEFORE SHIFT CHANGE. BLADDER SCANNED TWICE WITH VALUES OF 245 AND 350 CC'S. ORDER OBTAINED FOR STRAIGHT CATHETER TIMES ONE. NURSE TO CONTINUE MONITORING.
[2019-09-16 05:59] LABS: HEMATOCRIT 27.4 % (42.0-52.0); HEMOGLOBIN 8.9 gm/dL (14.0-18.0); MCH 25.6 pg (26.0-34.0); MCHC 32.6 g/dL (28.0-37.0); MCV 78.5 fL (80.0-100.0); RBC 3.5 mil/uL (4.50-6.00); RDW 20.2 % (10.5-14.5); WBC 6.9 thou/uL (4.0-11.0)
[2019-09-16 06:08] VITALS: BP 154/79
[2019-09-16 06:16] LABS: ALBUMIN 2.2 g/dL (3.4-5.0); CALCIUM 8.2 mg/dL (8.5-10.1); CREATININE 1.9 mg/dL (0.7-1.3); PHOSPHORUS 3.9 mg/dL (2.5-4.9); POTASSIUM 4.4 mmol/L (3.5-5.1)
--- NOTE | 2019-09-16 06:47 | NUR ---
PATIENT IS PROGRESSING SLOWLY IN HIS CARE PLAN. VITAL SIGNS STABLE WITH PATIENT HAVING NO COMPLAINTS OF PAIN OR NAUSEA. PATIENT HAS BEEN ABLE TO ANSWER ALL ORIENTATION QUESTIONS SUCCESSFULLY THROUGHOUT THE SHIFT. HE HAS NOT SHOWN THE ABILITY TO CALL APPROPRIATELY FOR NEEDS. BREATHING STABLE ON NASAL CANNULA EVIDENCED BY ASSESSMENT AND SPOT OXYGENATION CHECKS. SWALLOW PRECAUTIONS FOLLOWED. FREQUENT TURNS WITH SKIN CARE. PATIENT HAS SHOWN URINARY RETENTION AND REQUIRED STRAIGHT CATHETER ONCE DURING SHIFT. NURSE TO BLADDER SCAN AFTER REPORT. CONTINUE PLAN OF CARE.
[2019-09-16 08:10] VITALS: BP 147/76
--- NOTE | 2019-09-16 09:30 | NUR ---
PT UNABLE TO VOID, DR ROLAND PAGED FOR ORDERS. BLADDER SCANNED PT HAD 430ML. ORDERS TO INSERT PERKINS CATHETER PER LUAN AND SEND PT TO [facility] WITH CATHETER WITH OUT PATIENT UROLOGY CONSULT. PERKINS CATHETER INSERTED PT TOLERATED WELL-400ML OUT IMMEDIATELY POST INSERTION.
--- NOTE | 2019-09-16 10:50 | NUR ---
YVONNE reviewed chart and spoke with nursing and attending physician. Pt had EGD yesterday. Pt's diet advanced. PT/OT/ST all have worked with pt today. YVONNE faxed therapy notes and updated clinical info to [facility] for review. YVONNE requested that attending physician document that pt is medically stable for discharge per insurance's request, in order for authorization to be given to SNF. YVONNE spoke with the credentialing coordinator at [facility], who will send info to pt's insrurance. YVONNE is following to assist as needed with discharge planning.
[2019-09-16 12:03] VITALS: BP 151/76
[2019-09-16 16:02] VITALS: BP 131/59
--- NOTE | 2019-09-16 16:06 | PATH ---
[facility] [address] [address] [place] [address] PATHOLOGY RPT PROCEDURE Name: PARMINDER HUNGSTEVEN [place] Room #: 438-P ADM IN M.R.#: [id number] Admission: 08/24/19 Date of : 52 Discharge: Report #: [id number] Path Case #: [id number] [facility] Accession Number: [id number] . 01 Material submitted: . stomach - ANTRAL BIOPSY R/O H. PYLORI . 01 Clinician provided ICD-10: A41.9 J69.0 . 01 Clinical history: . Anemia, melena . 02 Diagnosis: Gastric mucosa, antrum, rule out H. pylori, endoscopic biopsy: - Mild chronic active gastritis with features of reactive gastropathy. - Negative for intestinal metaplasia or atrophy. - Negative for Helicobacter pylori (properly controlled immunohistochemical stain performed). (IUV:pit 09/16/2019) QTP 09/16/2019 1246 Local . 02 Electronically signed: . Lilly Maria MD, Pathologist NPI- [id number] . 01 Gross description: . The specimen is received in formalin, labeled "Alvin Hung, antral BX rule out H. pylori" and consists of 2 fragments of carias tissue measuring 0.6 x 0.3 x 0.2 cm in aggregate which are entirely submitted in A1. ([facility]; 09/15/2019) JFQ/JFQ 09/15/2019 1606 Local . 02 Pathologist provided ICD-10: K29.50 . 02 CPT . 126435, [id number] Specimen Comment: A courtesy copy of this report has been sent to [phone] Specimen Comment: [phone], Specimen Comment: Report sent to ,DR GARCIA / DR ROLAND Performed at: 01 [facility] [address], [place], [place] [id number] MD Coy Lockwood MD Phone: [phone] [facility] [place] [address] PATHOLOGY RPT PROCEDURE Name: ALVIN HUNG R Room #: 438-P [facility] IN M.R.#: [id number] Admission: 08/24/19 Date of : 52 Discharge: Report #: [id number] Path Case #: [id number] Performed at: 02 [facility] [address] [place], [place] [id number] MD Lilly Maria MD Phone: [phone]
--- NOTE | 2019-09-16 17:16 | NUR ---
PT A&OX3. IV INTACT IN R AC. TRANSFERS WITH ASSIST X2. PERKINS CATH IN PLACE. ORIENTED PT TO ROOM/ CALL LIGHT. BED ALARM IS ON. WILL CONT POC.
[2019-09-16 19:58] VITALS: BP 137/58
--- NOTE | 2019-09-17 02:22 | NUR ---
ASSESSED AT START OF SHIFT PT A&OX3 RESTING IN BED. CLEAR LUNGS SOUNDS FOLLEY INTACT AND DRAINING. EVENING MEDS GIVEN WITH THICK LIQUIDS PT WOLF IT WELL. BLOOD SUGAR CHECKED AND INSULIN COVERAGE PROVIDED. REPOSITIONED PT FOR COMFORT. DENIES PAIN, N/V. FALL PREC IN PLACE AND WILL CONT WITH POC TILL EOS.
[2019-09-17 04:39] VITALS: BP 138/76
[2019-09-17 06:44] LABS: ALBUMIN 2.2 g/dL (3.4-5.0); CALCIUM 8.1 mg/dL (8.5-10.1); CREATININE 2.3 mg/dL (0.7-1.3); PHOSPHORUS 3.7 mg/dL (2.5-4.9); POTASSIUM 4.6 mmol/L (3.5-5.1)
[2019-09-17 09:47] VITALS: BP 150/89
[2019-09-17 09:49] VITALS: BP 149/64
[2019-09-17] MEDS ORDERED: CLONIDINE1 EAC1 TRANSDERM (13:18)
[2019-09-17] MEDS ORDERED: PEPCID20 MG PO (13:18)
[2019-09-17] MEDS ORDERED: VITAMIN B-1100 M2 PO (13:18)
--- NOTE | 2019-09-17 15:42 | NUR ---
DC ORDERS RECEIVED. IV REMOVED FROM R AC. DC INSTRUCTIONS REVIEWED WITH PT. REPORT CALLED TO [facility] AND REPORTED TO NURSE ROSENBERG. MEGAN EDUARDO ARRIVED AT 1500 AND TRANSPORTED PT.
--- NOTE | 2019-09-17 17:03 | NUR ---
PT DISCHARGING TODAY TO [facility] FAXED DC ORDERS/SUMMARY TO FACILITY RECEIVED CONFIRMATION AND TRANSPORT ARRANGED FOR 15OO TODAY. FAMILY NOTIFIED AND UNIT NOTIFIED. CHART COPY PER US.
== END 2019-09-17 15:18 | DRG 870 ==
LOC: ER 16:29 → 3W 18:19 → ICU 18:19 → 2N 18:19 → EROBS 18:19 → ICU 21:57 → 2N 09-02 01:33 → 3W 09-08 22:49 → 4S 09-16 15:19
PROVIDERS: Hospitalist; Internal Medicine; Internal Medicine Pulmonary Disease; Nurse Practitioner; Nurse Practitioner Family; Psychiatry & Neurology Neuromuscular Medicine; Specialist; ADMIT Internal Medicine; ATTEND Internal Medicine
PROC: 5A09357 Assistance with Respiratory Ventilation, Less than 24 Consecutive Hours, Continuous Positive Airway Pressure (ICD-10-PCS; principal; 2019-08-24)
PROC: 0BH18EZ Insertion of Endotracheal Airway into Trachea, Via Natural or Artificial Opening Endoscopic (ICD-10-PCS; 2019-08-25)
PROC: 5A1955Z Respiratory Ventilation, Greater than 96 Consecutive Hours (ICD-10-PCS; 2019-08-25)
PROC: 02H633Z Insertion of Infusion Device into Right Atrium, Percutaneous Approach (ICD-10-PCS; 2019-08-25)
PROC: 5A09357 Assistance with Respiratory Ventilation, Less than 24 Consecutive Hours, Continuous Positive Airway Pressure (ICD-10-PCS; 2019-08-25)
PROC: 30233N1 Transfusion of Nonautologous Red Blood Cells into Peripheral Vein, Percutaneous Approach (ICD-10-PCS; 2019-09-14)
PROC: 0DB78ZX Excision of Stomach, Pylorus, Via Natural or Artificial Opening Endoscopic, Diagnostic (ICD-10-PCS; 2019-09-15)
DX: A41.9 Sepsis, unspecified organism (principal); J69.0 Pneumonitis due to inhalation of food and vomit; J96.01 Acute respiratory failure with hypoxia; G92 Toxic encephalopathy; K29.71 Gastritis, unspecified, with bleeding; K22.11 Ulcer of esophagus with bleeding; G72.81 Critical illness myopathy; N17.9 Acute kidney failure, unspecified; I50.30 Unspecified diastolic (congestive) heart failure; E87.0 Hyperosmolality and hypernatremia; F10.239 Alcohol dependence with withdrawal, unspecified; D62 Acute posthemorrhagic anemia; N18.3 Chronic kidney disease, stage 3 (moderate); R65.20 Severe sepsis without septic shock; E11.22 Type 2 diabetes mellitus with diabetic chronic kidney disease; I95.9 Hypotension, unspecified; E78.5 Hyperlipidemia, unspecified; M32.9 Systemic lupus erythematosus, unspecified; E87.6 Hypokalemia; R13.10 Dysphagia, unspecified; M10.9 Gout, unspecified; Z51.5 Encounter for palliative care; M48.02 Spinal stenosis, cervical region; G89.29 Other chronic pain; M54.5 Low back pain; G31.83 Neurocognitive disorder with Lewy bodies; F02.80 Dementia in other diseases classified elsewhere, unspecified severity, without behavioral disturbance, psychotic disturbance, mood disturbance, and anxiety; K44.9 Diaphragmatic hernia without obstruction or gangrene; K22.2 Esophageal obstruction; D50.9 Iron deficiency anemia, unspecified; D63.8 Anemia in other chronic diseases classified elsewhere; E11.40 Type 2 diabetes mellitus with diabetic neuropathy, unspecified; Z20.828 Contact with and (suspected) exposure to other viral communicable diseases; Z79.899 Other long term (current) drug therapy; Z79.4 Long term (current) use of insulin; Z82.49 Family history of ischemic heart disease and other diseases of the circulatory system; Z83.3 Family history of diabetes mellitus
CPT/HCPCS: 10078; 10081; 10100; 10879; 62110; 62900; 70005

== ENCOUNTER 2019-11-19 11:59 | Emergency (ER) | payer OTHER ==
[~2019-11-19] VITALS: Ht 175.3 cm; Wt 83.9 kg
[~2019-11-19 11:59] MED LIST changes: +AUGMENTIN 500-1 EACH PO; +CLONIDINE1 EAC1 TRANSDERM; +LEVEMIR100 UNIT/1 SUBQ; +VITAMIN B-1100 M2 PO
[2019-11-19 14:31] LABS: ABSOLUTE NEUTROPHILS 8.9 thou/uL (1.4-8.2); BASOPHILS 1.5 % (0.0-2.0); HEMATOCRIT 33.6 % (42.0-52.0); HEMOGLOBIN 10.8 gm/dL (14.0-18.0); LYMPHOCYTES 7.9 % (24.0-44.0); MCH 22.8 pg (26.0-34.0); MCV 71.1 fL (80.0-100.0); MONOCYTES 6.6 % (1.0-8.0); PLATELET COUNT 306 thou/uL (150-400); RBC 4.72 mil/uL (4.50-6.00); RDW 18.5 % (10.5-14.5); WBC 10.9 thou/uL (4.0-11.0)
[2019-11-19 14:42] LABS: CALCIUM 8.6 mg/dL (8.5-10.1); CREATININE 1.5 mg/dL (0.7-1.3)
[2019-11-19 15:36] LABS: URINE BILIRUBIN NEGATIVE (Negative); URINE BLOOD 1+ (Negative); URINE CLARITY CLEAR; URINE COLOR YELLOW; URINE GLUCOSE-RANDOM* TRACE (Negative); URINE KETONES NEGATIVE (Negative); URINE LEUKOCYTES-REFLEX NEGATIVE (Negative); URINE NITRITE-REFLEX NEGATIVE (Negative); URINE PROTEIN (DIPSTICK) 3+ (Negative); URINE UROBILINOGEN 0.2 E.U./dl (0.2-1.0)
[2019-11-19 15:42] LABS: BACTERIA-REFLEX 1-9 Few /HPF (None Seen); CASTS None Seen /LPF (None Seen); CRYSTALS None Seen /LPF (None Seen); SQUAMOUS None Seen /LPF (0-3); URINE RBC 3-10 Few /HPF (0-2); URINE WBC-REFLEX 0-5 Rare /HPF (0-5)
[2019-11-19 15:47] LABS: ANISOCYTOSIS 1+; HYPOCHROMASIA 1+
[2019-11-19 15:48] LABS: MICROCYTES 1+
[2019-11-19 19:15] VITALS: BP 175/67
== END 2019-11-19 19:15 | disposition short-term general hospital (02) ==
LOC: ER 11:59
PROVIDERS: Nurse Practitioner
DX: K62.89 Other specified diseases of anus and rectum (principal); K59.00 Constipation, unspecified; R33.9 Retention of urine, unspecified; I10 Essential (primary) hypertension; E11.9 Type 2 diabetes mellitus without complications; E78.5 Hyperlipidemia, unspecified; Z79.899 Other long term (current) drug therapy